=== PATIENT | female | born 1935 | race Caucasian/White ===

== ENCOUNTER 2017-08-26 08:58 | Inpatient (IN) ==
[~2017-08-26 08:58] MED LIST: BUPivacaine Liposome/PF (Exparel) Inj 20ml vial INFIL ONE; Gentamicin Inj 40 MG/ML VIAL ONE; HEPARIN 10,000 UNIT/1 ML ONE; Ketorolac Inj 30 MG, Morphine Inj 5 MG, BUPivacaine Inj 0.25% PF 150 MG SPLASH ONE; LIDOCAINE W/ SODIUM BICARB 0.5 ML SYR SUBD ONE; Sodium Chloride 0.9% 2,000 ML ONE; Sodium Chloride 0.9% 500 ML ONE; Sodium Chloride 0.9% vial 40 ML ONE; ceFAZolin Inj 2gm (Premix) 2 GM/50 ML BAG IV ONE
[2017-08-26 09:24] LABS: BILIRUBIN,URINE NEGATIVE (NEG); CLARITY,URINE CLOUDY (CLEAR); COLOR,URINE YELLOW (Y); GLUCOSE, URINE (UA) NEGATIVE (NEG); OCCULT BLOOD,URINE SMALL (NEG); PH,URINE 5.5 (5.0-8.5); PROTEIN,URINE 100 mg/dl (NEG)
[2017-08-26 09:29] LABS: URINE SAMPLE TYPE VOIDED SPECIMEN; WBC,URINE 40-60
[2017-08-26 09:30] LABS: BACTERIA,URINE MANY; RENAL EPITHELIAL CELLS,URINE RARE; SQUAMOUS EPITHELIAL CELL,UR MANY
[2017-08-26] MEDS ORDERED: LIDOCAINE W/ SODIUM BICARB 0.5 ML SYR ONE (09:41)
[2017-08-26] MEDS ORDERED: Lactated Ringers 1,000 ML PRIMARY IV ONE (09:41)
[2017-08-26] MEDS ORDERED: ceFAZolin Inj 2gm (Premix) 2 GM/50 ML BAG IV ONE (09:41)
[2017-08-26 10:22] LABS: BILIRUBIN,URINE NEGATIVE (NEG); CLARITY,URINE CLEAR (CLEAR); COLOR,URINE YELLOW (Y); GLUCOSE, URINE (UA) NEGATIVE (NEG); OCCULT BLOOD,URINE NEGATIVE (NEG); PROTEIN,URINE 30 mg/dl (NEG)
[2017-08-26 10:33] LABS: RBC,URINE 0 /hpf; SQUAMOUS EPITHELIAL CELL,UR RARE; URINE SAMPLE TYPE CATH SPECIMEN
[2017-08-26] MEDS ORDERED: MIDAZOLAM 5 MG/1 ML ONE (11:57)
[2017-08-26] MEDS ORDERED: ROCURONIUM 10 MG/1 ML - 5 ML VIAL IVP ONE (11:57)
[2017-08-26] MEDS ORDERED: KETAMINE 100 MG/1 ML - 5 ML ONE (11:57)
[2017-08-26] MEDS ORDERED: fentaNYL Inj 250 MCG/5 ML VIAL ONE (11:57)
[2017-08-26] MEDS ORDERED: LIDOCAINE MPF 2% - 5 ML (20 MG/1 ML) ONE ×2 (11:59→14:01)
[2017-08-26] MEDS ORDERED: D5-LR 1,000 ML PRIMARY IV ONE (12:07)
[2017-08-26] MEDS ORDERED: Hetastarch 6% + NS 500 ML IV ONE (13:43)
[2017-08-26] MEDS ORDERED: TRANEXAMIC ACID 1,000 MG / 10 ML VIAL ONE ×2 (14:48→14:49)
[2017-08-26] MEDS ORDERED: Sodium Chloride 0.9% 100 ML IV ONE (14:52)
[2017-08-26] MEDS ORDERED: Sodium Chloride 0.9% 500 ML ONE (15:12)
[2017-08-26] MEDS ORDERED: Ondansetron ODT Tab 8 MG TAB PO PRN ×2 (15:52→17:01)
[2017-08-26] MEDS ORDERED: NORMAL SALINE 10 ML SYRINGE FLUSH IVP PRN ×2 (15:52→17:01)
[2017-08-26] MEDS ORDERED: fentaNYL Inj 100 MCG/2 ML VIAL IVP PRN (15:52)
[2017-08-26] MEDS ORDERED: ATROPINE SULFATE 0.4 MG/1 ML VIAL IVP PRN (15:52)
[2017-08-26] MEDS ORDERED: ONDANSETRON 4 MG/2 ML VIAL IVP PRN ×2 (15:52→17:01)
[2017-08-26] MEDS ORDERED: Lactated Ringers 1,000 ML PRIMARY IV SCH (16:00)
--- NOTE | 2017-08-26 16:01 | CRNA.PROGR ---
Anesthesia Time - - Start date: 08/26/17 End date: 08/26/17 - Procedure/Recovery Time Anesthesia : Time In: 12:11 Anesthesia : Time Out: 15:44 Anesthesia : Total Time: 213 - Total Anesthesia Time Total Anesthesia Time (minutes): 213 - Other Weight: 90.718 kg Height: 5 ft 6 in Body Mass Index (BMI): 32.3 Physical Status: P3 (ASCVD, CVA history, HTN, AGE) Anesthesia Type: General Anesthesia : ET
--- NOTE | 2017-08-26 16:02 | CRNA.PROGR ---
Anesthesia Recovery Phase I - Post Anesthesia Evaluation Patient's Condition on Arrival in Phase I: Stable Patient's Condition on Arrival in Phase II: Stable Pain Level: 0
--- NOTE | 2017-08-26 16:02 | CRNA.PROGR ---
Post Anesthesia Phase II - Post Anesthesia Phase II Patient Stable and Discharged To: Med/Surg Care Assumed By Surgeon: Jarret May MD Total Jorgito Score at Discharge: 9 Post Anesthesia Discharge Criteria Met: Yes
--- NOTE | 2017-08-26 16:08 | ORTHO.OP ---
- - -: See Dictated Operative Report Procedure Codes - Hip Procedures Primary Hip Procedure: 53456 : ALEJANDRA (Itzel Walker assisted)
[2017-08-26] MEDS ORDERED: HYDROmorphone 2 MG/1 ML IVP PRN (17:01)
[2017-08-26] MEDS ORDERED: Prochlorperazine Tab 10 MG TAB PO PRN (17:01)
[2017-08-26] MEDS ORDERED: CARVEDILOL 6.25 MG TABLET PO SCH ×2 (17:01→21:00)
[2017-08-26] MEDS ORDERED: MAG HYDROX/AL HYDROX/SIMETH 30 ML SUSP PO PRN (17:01)
[2017-08-26] MEDS ORDERED: Insulin Glargine SoloStar Inj 100 UNIT/ML INSULN.PEN SUBCUT SCH ×2 (17:01→21:00)
[2017-08-26] MEDS ORDERED: diphenhydrAMINE 25 MG CAPSULE PO PRN (17:01)
[2017-08-26] MEDS ORDERED: BISACODYL 5 MG TABLET PO PRN (17:01)
[2017-08-26] MEDS ORDERED: BISACODYL 10 MG SUPPOSITORY RECTAL PRN (17:01)
[2017-08-26] MEDS ORDERED: CALCIUM CARBONATE 500 MG (TUMS) CHEWABLE TABLET PO PRN (17:01)
[2017-08-26] MEDS ORDERED: DOCUSATE 100 MG CAPSULE PO SCH (17:01)
--- NOTE | 2017-08-26 17:40 | CONSULT ---
Consult Note - Consult Consult Date: 08/26/17 Reason for Consult: PostOp Consulation : Ortho Requesting Physician: Dr. May Primary Care Provider: FREDY HARRY - History of Present Illness History of Present Illness: This is a 81 years old female with medical history significant for history of stroke back in March 2017, hypertension, diabetes, sleep apnea, osteoarthritis who came into the hospital to have right hip replacement and was done by Dr. May today. The hospitalist service were consulted for management of medical issues. Currently she is denying symptoms right now. There is no significant pain, no chest pain, no shortness of breath and no nausea. Past Medical History Medical History: 1. Diabetes on insulin and Glucophage. 2. Hypertension. 3. Stroke in March last year. 4. Osteoarthritis. 5. History of for obstructive sleep apnea on oxygen at night. 6. GERD. 7. History of neuropathy. 8. History of chronic back pain Surgical History: 1. History of cholecystectomy. 2. History of knee replacements before Pertinent Family History: Son had coronary artery disease Past Social History: She used to smoke and drink but not anymore. Lives in [place]. Had 4 children one of them from coronary artery disease. She doesn't drive. Tobacco Use: Former Smoker In the Past 12 Months, Have Used or Abuse Any of the Following Substance: None Alcohol Use: None Review of Systems - Review of Systems All Systems: Reviewed & No Additional Complaints Except as Stated Medication / Allergies Home Medications: Home Medications 3 Medication Instructions Recorded Confirmed Type hydrocodone 5 mg-acetaminophen 325 1 tab PO Q8H PRN tab 03/26/17 08/20/17 History mg tablet metformin 1,000 mg tablet 1,000 mg PO BID 03/26/17 08/20/17 History calcium carbonate-vitamin D3 600 1 cap PO QDAY cap 04/23/17 08/20/17 History mg (1,500 mg)-500 unit capsule fluticasone 50 mcg/actuation nasal 1 spray INASL QDAY PRN 04/23/17 08/20/17 History spray,suspension atorvastatin 40 mg tablet 40 mg PO QHS 04/24/17 08/20/17 History fesoterodine ER 8 mg 8 mg PO QDAY 04/24/17 08/20/17 History tablet,extended release 24 hr gabapentin 600 mg tablet 600 mg PO QHS tab 04/24/17 08/20/17 History venlafaxine ER 75 mg 75 mg PO BID cap 04/24/17 08/20/17 History capsule,extended release 24 hr carvedilol 6.25 mg tablet 6.25 mg PO BID tab 07/16/17 08/20/17 History docusate sodium 100 mg capsule 100 mg PO QDAY 07/16/17 08/20/17 History famotidine 20 mg tablet 20 mg PO BID 07/16/17 08/20/17 History insulin glargine 100 unit/mL (3 50 unit SUBCUT ONCE 07/16/17 08/20/17 History mL) subcutaneous pen linaclotide 145 mcg capsule 145 mcg PO QDAY 07/16/17 08/20/17 History valsartan 320 mg tablet 320 mg PO QDAY 07/16/17 08/20/17 History apixaban 5 mg tablet 5 mg PO BID tab 08/20/17 08/20/17 History Allergies/Adverse Reactions: Allergies 3 Allergy/AdvReac Type Severity Reaction Status Date / Time bee stings Allergy Severe HIVES Uncoded 08/26/17 17:03 morphine AdvReac NAUSEA Uncoded 08/26/17 17:03 Exam - Vitals Vital Signs: Vital Signs Temperature 97.2 F Temperature Source Temporal Artery Scan Pulse Rate [Pulse Oximeter] 76 Pulse Rate 78 Respiratory Rate 17 Blood Pressure [Left Arm] 129/81 Pulse Ox 99 Oxygen Flow Rate 4 Oxygen Delivery Method Nasal Cannula Height 5 ft 6 in Weight 200 lb - General General Appearance: No Acute Distress, Cooperative, Obese - Head Head Exam: Normal Inspection, Atraumatic - Eye Eye Exam: POSITIVE: Normal Appearance - ENT ENT Exam: POSITIVE: Normal Exam - Neck Neck Exam: Normal Inspection - Respiratory Respiratory Exam: POSITIVE: Clear to Auscultation - Bilaterally - Cardiovascular Cardiovascular Exam: POSITIVE: RRR - GI/Abdominal GI/Abdominal Exam: POSITIVE: Normal Bowel Sounds, Non Tender, Non Distended, Soft, No Organomegaly - Rectal Rectal Exam: POSITIVE: Deferred - External Exam: POSITIVE: Deferred - Extremities Additional Extremities Exam Details: Dressing applied to the right hip. Drain is in place - Neurological Neurological Exam: POSITIVE: Alert, Oriented x 3, CN II-XII Intact, Speech Intact / Clear - Psychiatric Psychiatric Exam: POSITIVE: Normal Affect - Integumentary Integumentary Exam: POSITIVE: Normal Color Assessment and Plan - Patient Problems (1) Status post right hip replacement Current Visit: Yes Status: Acute Comment: Pain medication was written for her. For DVT prophylaxis she is normally on eliquis and will be started on it tomorrow. Code(s): Z96.641 - Presence of right artificial hip joint (2) Hypertension Current Visit: No Status: Chronic Comment: We'll verify the dosage of her medications and probably will see what' s her blood pressure number and decide about when to restart her medications. We'll hold off on the valsartan until we see her blood pressure tomorrow. Code(s): I10 - Essential (primary) hypertension (3) Diabetes type 2, controlled Current Visit: No Status: Chronic Comment: She is on Lantus and metformin. Will put her on metformin will verify the dosage of her Lantus and then decide pending on her blood sugar, her intake about when to restart her Lantus. Code(s): E11.9 - Type 2 diabetes mellitus without complications (4) GERD (gastroesophageal reflux disease) Current Visit: No Status: Chronic Comment: Same meds Code(s): K21.9 - Gastro-esophageal reflux disease without esophagitis (5) Hyperlipidemia Current Visit: No Status: Chronic Comment: Same med Code(s): E78.5 - Hyperlipidemia, unspecified (6) Peripheral neuropathy Current Visit: No Status: Chronic Comment: Continue Neurontin Code(s): G62.9 - Polyneuropathy, unspecified
[2017-08-26] MEDS: HYDROcodone-APAP 7.5 MG-325 MG TABLET PO PRN (18:09)
[2017-08-26] MEDS: Lactated Ringers 1,000 ML PRIMARY IV SCH (18:10)
[2017-08-26] MEDS: FESOTERODINE FUMARATE 8 MG PO SCH (18:46)
--- NOTE | 2017-08-26 19:59 | DI ---
AP PELVIS AND RIGHT HIP, 08/26/2017 11:12 AM: Clinical History: Status post right total hip replacement. Osteoarthritis. Previous Exam: 08/25/2017. An AP pelvis with AP and lateral views of the replaced hip are submitted. The patient is status post right total hip replacement. The prosthetic joint articulates normally. A drain tube is in place. The re is a cerclage wire encircling the proximal femur. Reading: Status post right total hip replacement. The prosthetic joint articulates normally. A cerclage wire i s present.
[2017-08-26] MEDS: VENLAFAXINE XR 75 MG CAP PO SCH (20:55)
[2017-08-26] MEDS: GABAPENTIN 300 MG CAPSULE PO SCH (20:56)
[2017-08-26] MEDS: ATORVASTATIN 40 MG TABLET PO SCH (20:58)
[2017-08-26] MEDS: FAMOTIDINE 20 MG TABLET PO SCH (20:58)
[2017-08-26] MEDS: ceFAZolin Inj 2gm (Premix) 2 GM/50 ML BAG IV SCH (21:01)
[2017-08-26] MEDS: metFORMIN 500 MG TABLET PO SCH (21:24)
[2017-08-26] MEDS: DOCUSATE 100 MG CAPSULE PO SCH (22:05)
[2017-08-27] MEDS: HYDROcodone-APAP 7.5 MG-325 MG TABLET PO PRN ×6 (00:11→23:23)
[2017-08-27] MEDS: Lactated Ringers 1,000 ML PRIMARY IV SCH ×3 (03:24→04:11)
[2017-08-27] MEDS: ceFAZolin Inj 2gm (Premix) 2 GM/50 ML BAG IV SCH (04:11)
[2017-08-27 05:06] LABS: Hematocrit [HCT] 28.1 % (37.0-47.0); Hemoglobin [HGB] 8.8 g/dL (12.0-16.0); MEAN CORPUSCULAR HEMOGLOBIN 28.4 PG (27-31); MEAN CORPUSCULAR HGB CONC 31.3 g/dL (33-37); MEAN CORPUSCULAR VOLUME 90.6 FL (81-99); MEAN PLATELET VOLUME 10.5 FL (7.4-12.2); RED BLOOD COUNT 3.1 10^6/uL (4.20-5.40)
[2017-08-27 05:21] LABS: BLOOD UREA NITROGEN 14 mg/dL (7-22); BUN/CREATININE RATIO 23.33 (6-20)
[2017-08-27] MEDS ORDERED: LIDOCAINE HCL 2 % 10 ML JELLY URO-JECT TOPICAL PRN (07:06)
--- NOTE | 2017-08-27 08:03 | ORTHO.PROG ---
Last Taken Vital Signs: Vital Signs - Last Taken Temperature 97.1 F 08/27/17 04:13 Pulse Rate 69 08/27/17 04:13 Respiratory Rate 14 08/27/17 04:13 Blood Pressure 112/65 08/27/17 04:13 Pulse Ox 96 08/27/17 05:27 Subjective: Patient's pain controlled well, feels good after right total hip replacement Objective: Dressings are intact the deep drain has approximately 40 mL superficial drain looks like it's functioning correctly motor and sensory exam is nonfocal. No calf, popliteal adductor hiatus or thigh pain. Patient with portable plasma flow devices in place Intake and Output - 8hrs 08/26/17 08/26/17 08/27/17 08/27/17 13:59 21:59 05:59 13:59 Intake: IV 3050 / 3050 1212 / 1212 OrthoPat 250 / 250 Output: Output, Drainage Amount 0 / 0 40 / 40 Right Hip 0 / 0 40 / 40 Output, Urinary Catheter Amount 200 / 200 Output, Urine Amount 100 / 100 150 / 150 Output, Post Indwelling 20 / 20 Catheter Insertion Output, Estimated Blood Loss 700 / 700 Amount Other: Percent Meal Consumed Dinner 100% Drains Hemovac Negative Pressure Drain R hip Hemovac Negative Pressure Drain Weight 90.718 kg 90.718 kg Weight Measurement Method Stated by Patient Laboratory Results 08/26/17 08/26/17 08/27/17 Range/Units 09:20 10:13 04:30 WBC (4.8-10.8) 10^3/uL RBC (4.20-5.40) 10^6/uL Hgb (12.0-16.0) g/dL Hct (37.0-47.0) % MCV (81-99) FL MCH (27-31) PG MCHC (33-37) g/dL RDW Std Deviation (39-50) fL RDW Coeff of Bethanie (11.5-14.5) % Plt Count (140-350) 10*3/uL MPV (7.4-12.2) FL Sodium 134 L (135-145) meq/L Potassium 4.1 (3.8-5.2) meq/L Chloride 101 (98-112) meq/L Carbon Dioxide 27 (23-33) meq/L Anion Gap 6 (5-20) BUN 14 (7-22) mg/dL Creatinine 0.6 (0.50-1.20) mg/dL BUN/Creatinine Ratio 23.33 H (6-20) Glucose 145 H (78-110) mg/dL Calculated Osmolality 281.0 (267-292) mOsm/kg Calcium 7.8 L (8.7-10.7) mg/dL Ur Collection Type Voided specimen Cath specimen Urine Color Yellow Yellow (Y) Urine Clarity Cloudy A Clear (CLEAR) Urine pH 5.5 6.0 (5.0-8.5) Ur Specific [place] 1.015 1.025 (1.005-1.030) Urine Protein 100 A 30 A (NEG) mg/dl Urine Glucose (UA) Negative Negative (NEG) mg/dL Urine Ketones Negative Trace A (NEG) Urine Occult Blood Small H Negative (NEG) Urine Nitrate Negative Negative (NEG) Urine Bilirubin Negative Negative (NEG) Urine Urobilinogen 1.0 1.0 (0.2) EU/dL Ur Leukocyte Esterase Large Trace (NEG) Urine RBC 1-3 0 (NONE) /hpf Urine WBC 40-60 H 1-3 (NONE) Ur Squamous Epith Cells Many Rare (NONE) Ur Renal Epithelial Cell Rare None (NONE) Urine Crystals None None Urine Bacteria Many H None (NONE) Urine Casts None None (NONE) Urine Mucus None Many (NONE) Urine Trichomonas None None (NONE) Urine Yeast None None (NONE) 08/27/17 Range/Units 04:30 WBC 9.33 (4.8-10.8) 10^3/uL RBC 3.10 L (4.20-5.40) 10^6/uL Hgb 8.8 L (12.0-16.0) g/dL Hct 28.1 L (37.0-47.0) % MCV 90.6 (81-99) FL MCH 28.4 (27-31) PG MCHC 31.3 L (33-37) g/dL RDW Std Deviation 41.2 (39-50) fL RDW Coeff of Bethanie 12.9 (11.5-14.5) % Plt Count 185 (140-350) 10*3/uL MPV 10.5 (7.4-12.2) FL Sodium (135-145) meq/L Potassium (3.8-5.2) meq/L Chloride (98-112) meq/L Carbon Dioxide (23-33) meq/L Anion Gap (5-20) BUN (7-22) mg/dL Creatinine (0.50-1.20) mg/dL BUN/Creatinine Ratio (6-20) Glucose (78-110) mg/dL Calculated Osmolality (267-292) mOsm/kg Calcium (8.7-10.7) mg/dL Ur Collection Type Urine Color (Y) Urine Clarity (CLEAR) Urine pH (5.0-8.5) Ur Specific [place] (1.005-1.030) Urine Protein (NEG) mg/dl Urine Glucose (UA) (NEG) mg/dL Urine Ketones (NEG) Urine Occult Blood (NEG) Urine Nitrate (NEG) Urine Bilirubin (NEG) Urine Urobilinogen (0.2) EU/dL Ur Leukocyte Esterase (NEG) Urine RBC (NONE) /hpf Urine WBC (NONE) Ur Squamous Epith Cells (NONE) Ur Renal Epithelial Cell (NONE) Urine Crystals Urine Bacteria (NONE) Urine Casts (NONE) Urine Mucus (NONE) Urine Trichomonas (NONE) Urine Yeast (NONE) Vital Signs (24 hrs) Temp Pulse Pulse Resp BP BP BP 08/27/17 05:27 08/27/17 04:13 97.1 F 69 14 112/65 08/27/17 00:39 98.4 F 83 20 112/59 08/26/17 21:19 98.3 F 94 20 115/61 08/26/17 20:45 98.4 F 89 20 109/70 08/26/17 20:15 98.5 F 86 20 104/59 08/26/17 19:45 110/68 08/26/17 19:30 116/68 08/26/17 19:29 08/26/17 19:15 106/63 08/26/17 19:00 18 116/73 08/26/17 18:00 81 16 114/66 08/26/17 17:45 82 18 129/69 08/26/17 17:30 81 18 120/74 08/26/17 17:15 78 16 114/101 08/26/17 17:02 97.2 F 76 18 129/81 08/26/17 16:37 97.9 F 73 24 134/68 08/26/17 16:27 71 15 128/66 02/27/18 16:17 98.6 F 76 12 120/63 08/26/17 16:11 78 08/26/17 16:07 80 11 L 115/67 08/26/17 15:57 80 12 98/62 08/26/17 15:52 80 17 106/57 08/26/17 15:47 99.6 F 80 14 105/63 Pulse Ox 08/27/17 05:27 96 08/27/17 04:13 97 08/27/17 00:39 96 08/26/17 21:19 96 08/26/17 20:45 95 08/26/17 20:15 97 08/26/17 19:45 08/26/17 19:30 08/26/17 19:29 96 08/26/17 19:15 08/26/17 19:00 08/26/17 18:00 100 08/26/17 17:45 100 08/26/17 17:30 99 08/26/17 17:15 98 08/26/17 17:02 99 08/26/17 16:37 99 08/26/17 16:27 99 08/26/17 16:17 100 08/26/17 16:11 08/26/17 16:07 98 08/26/17 15:57 98 08/26/17 15:52 98 08/26/17 15:47 98 Assessment: Right anterior total hip replacement doing well Plan: Patient will be started back on her eliquis and continue with the portable pneumatic sequential devices. Physical therapy and occupational therapy and we will do partial weightbearing may be somewhere between 30 and 50 pounds just to keep a little stress off that hip I probably will do this for a total of 6 weeks since we did band the upper femur was no calcar crack which went distally but along the posterior surface this bone was not as strong as I would like and I don't want to have any type of propagation. Pain control, patient anemic and will follow CBC the next several days.
[2017-08-27] MEDS ORDERED: Valsartan Tab 160 MG TAB PO SCH (09:00)
[2017-08-27] MEDS ORDERED: CARVEDILOL 6.25 MG TABLET PO SCH (09:00)
[2017-08-27] MEDS: FAMOTIDINE 20 MG TABLET PO SCH ×2 (09:05→21:30)
[2017-08-27] MEDS: GABAPENTIN 300 MG CAPSULE PO SCH ×2 (09:05→21:31)
[2017-08-27] MEDS: DOCUSATE 100 MG CAPSULE PO SCH ×2 (09:06→21:31)
[2017-08-27] MEDS: VENLAFAXINE XR 75 MG CAP PO SCH ×2 (09:06→21:31)
[2017-08-27] MEDS: Apixaban 5 MG TABLET PO SCH ×2 (09:06→21:31)
[2017-08-27] MEDS: metFORMIN 500 MG TABLET PO SCH ×2 (09:06→21:31)
[2017-08-27] MEDS: Calcium/Vit D 600mg/400u Tab 1 TAB TABLET PO SCH (09:06)
--- NOTE | 2017-08-27 09:39 | PDOC(PROG) ---
Date and Time of Service: 08/27/2017 9:39 AM Interval History: Subjective Patient had earlier some pain in her right hip but seems to be controlled now. She said she felt dizzy earlier but not anymore. Denying shortness of breath, chest pain. She did eat. Objective : Data - Labs CBC and BMP: 08/27/17 04:30 08/27/17 04:30 Objective : Exam - General General Appearance: No Acute Distress, Cooperative, Obese - Head Head Exam: Normal Inspection, Atraumatic - Eye Eye Exam: Normal Appearance - ENT ENT Exam: Normal Exam - Neck Neck Exam: Normal Inspection - Respiratory Respiratory Exam: Clear to Auscultation - Bilaterally - Cardiovascular Cardiovascular Exam: RRR - GI/Abdominal GI/Abdominal Exam: Normal Bowel Sounds, Non Tender, Non Distended, Soft, No Organomegaly - Rectal Rectal Exam: Deferred - External Exam: Deferred Exam: Deferred - Extremities Additional Extremities Exam Details: Dressing applied right hip. - Back Back Exam: Normal Inspection - Neurological Neurological Exam: Alert, Oriented x 3, CN II-XII Intact, Speech Intact / Clear - Psychiatric Psychiatric Exam: Normal Affect Assessment and Plan - Patient Problems (1) Status post right hip replacement Current Visit: Yes Status: Acute Comment: Continue PT and OT. For DVT prophylaxis she is on eliquis. Code(s): Z96.641 - Presence of right artificial hip joint (2) Hypertension Current Visit: No Status: Chronic Comment: Blood pressure is borderline I think I'll cut back on the Coreg. Continue holding the valsartan. Code(s): I10 - Essential (primary) hypertension (3) Diabetes type 2, controlled Current Visit: No Status: Chronic Comment: Continue metformin, I think will increase the dosage of the Lantus to 15 units tonight. Normally she is on 50. We'll see what her numbers today and decide whether we need to increase it further. Code(s): E11.9 - Type 2 diabetes mellitus without complications (4) GERD (gastroesophageal reflux disease) Current Visit: No Status: Chronic Comment: Continue Pepcid Code(s): K21.9 - Gastro-esophageal reflux disease without esophagitis (5) Hyperlipidemia Current Visit: No Status: Chronic Comment: She is on Lipitor Code(s): E78.5 - Hyperlipidemia, unspecified (6) Peripheral neuropathy Current Visit: No Status: Chronic Comment: Continue gabapentin Code(s): G62.9 - Polyneuropathy, unspecified (7) Postoperative anemia due to acute blood loss Current Visit: Yes Status: Acute Comment: Her hemoglobin is 8.8 today, we'll see what the numbers tomorrow and then will decide if she needs blood transfusion. Will put her on some multivitamin and iron pills Code(s): D62 - Acute posthemorrhagic anemia
[2017-08-27] MEDS: LINACLOTIDE 145 MCG PO SCH (09:51)
--- NOTE | 2017-08-27 16:21 | CRNA.PROGR ---
Anesthesia Note - Progress Notes Anesthesia Progress Note: Intake and Output (24hr x 4 totals) 08/25/17 08/26/17 08/27/17 08/28/17 05:59 05:59 05:59 05:59 Intake Total 4512 / 4512 740 / 740 Output Total 1210 / 1210 Balance 3302 / 3302 740 / 740 Vital Signs (Last 8 hours) Temp Pulse Resp BP Pulse Ox 08/27/17 11:29 97.2 F 72 16 93/47 96 Vital Signs - Last Taken Temperature 97.2 F 08/27/17 11:29 Pulse Rate 72 08/27/17 11:29 Respiratory Rate 16 08/27/17 11:29 Blood Pressure 93/47 08/27/17 11:29 Pulse Ox 96 08/27/17 11:29 Laboratory Results 08/27/17 08/27/17 Range/Units 04:30 04:30 WBC 9.33 (4.8-10.8) 10^3/uL RBC 3.10 L (4.20-5.40) 10^6/uL Hgb 8.8 L (12.0-16.0) g/dL Hct 28.1 L (37.0-47.0) % MCV 90.6 (81-99) FL MCH 28.4 (27-31) PG MCHC 31.3 L (33-37) g/dL RDW Std Deviation 41.2 (39-50) fL RDW Coeff of Bethanie 12.9 (11.5-14.5) % Plt Count 185 (140-350) 10*3/uL MPV 10.5 (7.4-12.2) FL Sodium 134 L (135-145) meq/L Potassium 4.1 (3.8-5.2) meq/L Chloride 101 (98-112) meq/L Carbon Dioxide 27 (23-33) meq/L Anion Gap 6 (5-20) BUN 14 (7-22) mg/dL Creatinine 0.6 (0.50-1.20) mg/dL BUN/Creatinine Ratio 23.33 H (6-20) Glucose 145 H (78-110) mg/dL Calculated Osmolality 281.0 (267-292) mOsm/kg Calcium 7.8 L (8.7-10.7) mg/dL Cheerful. Pleased with care. Has been up to chair. Thierry is still in. States she has been comfortable. Not going home today, lives alone and wants to be certain that she's okay. Vital Signs - Last Taken Temperature 97 F 08/28/17 07:21 Pulse Rate 74 08/28/17 07:21 Respiratory Rate 16 08/28/17 07:21 Blood Pressure 105/67 08/28/17 07:21 Pulse Ox 94 08/28/17 07:21
--- NOTE | 2017-08-27 16:40 | PT.PROG ---
Progress Note Progress Note: S. Patient states that she is feeling a little sore this afternoon however is willing to go for a walk. O. Patient transferred from sitting to standing then ambulated 30 feet to the hernandez and back to bed, she transferred to supine and was left in bed with alarm and call light. A. Patient tolerated ambulation fair, her shoulders were giving her a lot of pain and required a seated rest break due to pain in her neck and shoulders, she reported that her hip feels good. She would continue to benefit from skilled therapy to increase strength and mobility. P. Continue POC.
[2017-08-27] MEDS: FESOTERODINE FUMARATE 8 MG PO SCH (17:08)
[2017-08-27] MEDS ORDERED: Insulin Glargine SoloStar Inj 100 UNIT/ML INSULN.PEN SUBCUT SCH (21:00)
[2017-08-27] MEDS: ATORVASTATIN 40 MG TABLET PO SCH (21:31)
[2017-08-27] MEDS: CARVEDILOL 3.125 MG TABLET PO SCH (21:31)
[2017-08-28] MEDS: HYDROcodone-APAP 7.5 MG-325 MG TABLET PO PRN ×4 (03:54→23:07)
[2017-08-28 05:36] LABS: Hematocrit [HCT] 24.6 % (37.0-47.0); Hemoglobin [HGB] 7.9 g/dL (12.0-16.0); MEAN CORPUSCULAR HGB CONC 32.1 g/dL (33-37); MEAN CORPUSCULAR VOLUME 90.4 FL (81-99); RED BLOOD COUNT 2.72 10^6/uL (4.20-5.40)
[2017-08-28 05:47] LABS: BLOOD UREA NITROGEN 14 mg/dL (7-22); BUN/CREATININE RATIO 23.33 (6-20)
[2017-08-28] MEDS ORDERED: Sodium Chloride 0.9% 500 ML PRIMARY IV ONE (08:02)
--- NOTE | 2017-08-28 08:08 | PDOC(PROG) ---
Date and Time of Service: 08/28/2017 8:04 AM Interval History: Subjective Patient pain seemed to be controlled. She said she had some mild dizziness earlier. No other symptoms. Objective : Data - Labs CBC and BMP: 08/28/17 03:52 08/28/17 03:52 Objective : Exam - General General Appearance: No Acute Distress, Cooperative, Thin - Head Head Exam: Normal Inspection, Atraumatic - Eye Eye Exam: Normal Appearance - ENT ENT Exam: Normal Exam - Neck Neck Exam: Normal Inspection - Respiratory Respiratory Exam: Clear to Auscultation - Bilaterally - Cardiovascular Cardiovascular Exam: RRR - GI/Abdominal GI/Abdominal Exam: Normal Bowel Sounds, Non Tender, Non Distended, Soft, No Organomegaly - Rectal Rectal Exam: Deferred - External Exam: Deferred - Extremities Additional Extremities Exam Details: Dressing applied to the right hip - Back Back Exam: Normal Inspection - Neurological Neurological Exam: Alert, Oriented x 3, CN II-XII Intact, No Facial Droop, Speech Intact / Clear - Psychiatric Psychiatric Exam: Normal Affect - Integumentary Integumentary Exam: Pallor Assessment and Plan - Patient Problems (1) Status post right hip replacement Current Visit: Yes Status: Acute Comment: Continue PT and OT. For DVT prophylaxis she is on eliquis Code(s): Z96.641 - Presence of right artificial hip joint (2) Hypertension Current Visit: No Status: Chronic Comment: We'll continue Coreg but at a lower dosage than she takes. Continue holding the valsartan her blood pressure still seems to be borderline. Code(s): I10 - Essential (primary) hypertension (3) Diabetes type 2, controlled Current Visit: No Status: Chronic Comment: We'll increase Lantus to 17 units tonight, she is normally on 50 units at night. She said she is watching what she eats and maybe that the reason for her needing less insulin. Code(s): E11.9 - Type 2 diabetes mellitus without complications (4) GERD (gastroesophageal reflux disease) Current Visit: No Status: Chronic Comment: Continue Pepcid Code(s): K21.9 - Gastro-esophageal reflux disease without esophagitis (5) Hyperlipidemia Current Visit: No Status: Chronic Comment: contineu lipitor Code(s): E78.5 - Hyperlipidemia, unspecified (6) Peripheral neuropathy Current Visit: No Status: Chronic Comment: Continue gabapentin Code(s): G62.9 - Polyneuropathy, unspecified (7) Postoperative anemia due to acute blood loss Current Visit: Yes Status: Acute Comment: With the dizziness, and her HB of 7.9 today I think will give her 2 units of blood. Code(s): D62 - Acute posthemorrhagic anemia
[2017-08-28] MEDS: metFORMIN 500 MG TABLET PO SCH ×2 (08:19→20:13)
[2017-08-28] MEDS: GABAPENTIN 300 MG CAPSULE PO SCH ×2 (08:19→20:14)
[2017-08-28] MEDS: Calcium/Vit D 600mg/400u Tab 1 TAB TABLET PO SCH (08:19)
[2017-08-28] MEDS: VENLAFAXINE XR 75 MG CAP PO SCH ×2 (08:19→20:12)
[2017-08-28] MEDS: FERROUS GLUCONATE 324 MG TABLET PO SCH (08:20)
[2017-08-28] MEDS: Multivitamin Tab 1 TAB PO SCH (08:20)
[2017-08-28] MEDS: CARVEDILOL 3.125 MG TABLET PO SCH ×2 (08:20→20:25)
[2017-08-28] MEDS: FAMOTIDINE 20 MG TABLET PO SCH ×2 (08:20→20:14)
[2017-08-28] MEDS: Apixaban 5 MG TABLET PO SCH ×2 (08:20→20:14)
[2017-08-28] MEDS: DOCUSATE 100 MG CAPSULE PO SCH ×2 (08:20→20:14)
--- NOTE | 2017-08-28 10:11 | PTI REPORT ---
Thank you for the referral of Zelda Reyez. She was seen on 08/27/17 for an inpatient evaluation status post right total hip replacement. SUBJECTIVE: The patient is a 81-year-old female. The patient reports that she lives by herself in [place]. She states her son and [id number]-ose live nearby but they work during the day. The patient reports she has discussed swingbed status with the physician. She reports that she was previously modified independent with ADLs and functional mobility using a rollator walker or a four wheeled walker. The patient also reports a history of multiple lower extremity surgeries, low back pain, and prior physical therapy in [place]. PAST MEDICAL HISTORY: Past medical history can be found in the patient's medical record. OBJECTIVE FINDINGS: General observations: The patient was supine in bed upon the therapist's arrival with an IV, sequential compression devices on bilateral lower extremities, and two liters of supplemental oxygen. Pain: The patient reports a pain level of 6/10 on the verbal analog scale (0=no pain, 10=worst pain) in the right hip at rest. Nursing administered pain medications during the evaluation. Bed mobility: The patient performed bed mobility independently but required extra time to come from supine to sit. Balance: The patient was able to maintain sitting balance at edge of bed independently. Transfers: The patient transferred from sit to stand with one person minimal assist. Verbal and tactile cues as well as demonstration were needed to maintain partial weight-bearing status precautions. Ambulation: The patient ambulated with a standard walker, approximately 5 feet to the bedside chair with contact guard assist, but required cues to maintain weight-bearing precautions. Endurance: The patient complained of shortness of breath during ambulation and pain increased to 8/10. ASSESSMENT: The patient is status post right total hip replacement on 08/26/2017. The patient is partial weight-bearing; approximately 30-50 pounds. Problem List: Decreased lower extremity strength Decreased endurance Decreased independence with functional mobility including transfers and ambulation Pain Partial weight-bearing status Short-Term Goals: To be met by discharge from inpatient: Patient will be able to perform transfers modified independently using a standard walker. Patient will be able to ambulate 25 feet with standard walker, while maintaining weight-bearing precautions. Patient will recall and demonstrate partial weight-bearing precautions during functional mobility. Patient will demonstrate increased lower extremity strength by being able to perform bed mobility and transfers independently. Long-Term Goals: To be met following discharge from inpatient: Patient will be seen by outpatient physical therapy. TREATMENT PLAN: Patient will be seen B.I.D during the week and one time per day over the weekend as an inpatient for strengthening and range of motion exercises, bed mobility, transfers, and gait training while maintaining partial weight-bearing status. The patient will receive safety education in order to increase functional independence and decrease fall risk. INITIAL TREATMENT: Treatment today consisted of the initial evaluation followed by education on weight-bearing status, instruction on gait, and functional activity training including bed mobility, transfers, and ambulation with a standard walker. The patient was seated in the bedside chair with call button within reach and an ice pack applied to the right hip. Dictated by: CELIA Delcid Supervised by: FREDRICK Adame
[2017-08-28] MEDS: LINACLOTIDE 145 MCG PO SCH (10:46)
--- NOTE | 2017-08-28 15:39 | PT.PROG ---
Progress Note Progress Note: Nursing requested that physical therapy be held today due to patient needing blood transfusion.
[2017-08-28] MEDS: FESOTERODINE FUMARATE 8 MG PO SCH (16:10)
--- NOTE | 2017-08-28 17:51 | ORTHO.PROG ---
Last Taken Vital Signs: Vital Signs - Last Taken Temperature 98.5 F 08/28/17 16:04 Pulse Rate 71 08/28/17 16:04 Respiratory Rate 16 08/28/17 16:04 Blood Pressure 150/72 08/28/17 16:04 Pulse Ox 98 08/28/17 16:04 Subjective: Patient notes her pain is pretty well controlled but notes that she is very fatigued and felt a little lightheaded with mobilization the other day going from sitting to standing. Objective: Dressing is clean and dry where drain was pulled is no active drainage her PREVENA dressing is in place with no active issues. Motor and sensory exam is nonfocal she has popliteal or Dr. hiatus or thigh pain. Mild amount of swelling in the thigh region no bruising or ecchymosis. Laboratory Results 08/28/17 08/28/17 08/28/17 Range/Units 03:52 03:52 09:25 WBC 8.72 (4.8-10.8) 10^3/uL RBC 2.72 L (4.20-5.40) 10^6/uL Hgb 7.9 L (12.0-16.0) g/dL Hct 24.6 L (37.0-47.0) % MCV 90.4 (81-99) FL MCH 29.0 (27-31) PG MCHC 32.1 L (33-37) g/dL RDW Std Deviation 40.9 (39-50) fL RDW Coeff of Bethanie 12.9 (11.5-14.5) % Plt Count 145 (140-350) 10*3/uL MPV 11.0 (7.4-12.2) FL Sodium 130 L (135-145) meq/L Potassium 4.2 (3.8-5.2) meq/L Chloride 96 L (98-112) meq/L Carbon Dioxide 28 (23-33) meq/L Anion Gap 6 (5-20) BUN 14 (7-22) mg/dL Creatinine 0.6 (0.50-1.20) mg/dL BUN/Creatinine Ratio 23.33 H (6-20) Glucose 141 H (78-110) mg/dL Calculated Osmolality 272.0 (267-292) mOsm/kg Calcium 8.1 L (8.7-10.7) mg/dL Blood Type O NEGATIVE Antibody Screen Positive Antibody Identification Anti-D Crossmatch See Detail Intake and Output - 8hrs 08/27/17 08/28/17 08/28/17 08/28/17 21:59 05:59 13:59 21:59 Intake: Intake Oral Amount 600 / 600 1000 / 1000 400 / 400 700 / 700 Breakfast 400 / 400 Intake, Blood Product Amount 0 / 0 349 / 349 Packed Red Bld Cells Unit 175 / 175 [id number] Packed Red Bld Cells Unit 0 / 0 174 / 174 [id number] Output: Output, Urinary Catheter Amount 1100 / 1100 925 / 925 Output, Urine Amount 200 / 200 675 / 675 Other: Percent Meal Consumed Breakfast 100% Dinner 100% Lunch Refused Number of Incontient Voids 1 Weight 90.991 kg 92.578 kg Weight Measurement Method Standing Scale Built in [facility] Vital Signs (24 hrs) Temp Pulse Pulse Resp BP BP BP 08/28/17 16:04 98.5 F 71 16 150/72 08/28/17 15:50 97.5 F 72 18 150/72 08/28/17 14:54 98.8 F 78 16 140/60 08/28/17 14:52 99.0 F 72 16 140/60 08/28/17 14:36 99.7 F H 75 16 133/61 08/28/17 14:12 99.0 F 70 16 116/85 08/28/17 13:31 98.5 F 72 14 116/61 08/28/17 13:16 99.1 F 73 18 122/82 08/28/17 13:01 99.7 F H 83 18 113/54 08/28/17 12:49 99.8 F H 83 18 109/59 08/28/17 12:37 98.9 F 80 18 122/58 08/28/17 12:26 98.9 F 80 18 122/58 08/28/17 11:11 97 F 84 20 109/66 08/28/17 07:21 97 F 74 16 105/67 08/28/17 07:00 16 08/28/17 06:47 08/28/17 04:33 97.1 F 73 16 110/88 08/28/17 03:39 08/28/17 00:32 96.9 F 75 105/62 08/27/17 21:00 97.5 F 72 16 102/49 08/27/17 19:00 68 16 Pulse Ox 08/28/17 16:04 98 08/28/17 15:50 95 08/28/17 14:54 98 08/28/17 14:52 98 08/28/17 14:36 95 08/28/17 14:12 95 08/28/17 13:31 95 08/28/17 13:16 97 08/28/17 13:01 94 08/28/17 12:49 93 08/28/17 12:37 96 08/28/17 12:26 96 08/28/17 11:11 94 08/28/17 07:21 94 08/28/17 07:00 08/28/17 06:47 99 08/28/17 04:33 98 08/28/17 03:39 98 08/28/17 00:32 99 08/27/17 21:00 98 08/27/17 19:00 Assessment: Right total hip replacement Anemia postsurgical Plan: At this point discussed the case with the hospitalist, Dr. Dior, and since she is having a lot of symptoms secondary to her anemia and multiple medical issues it may be prudent to proceed with transfusion of packed RBCs at this point in time. We will have her continue with physical and occupational therapy as she can tolerate at this point time continue to mobilize. Continue with DVT prophylaxis with her eloquis and a pneumatic sequentials. Pain control seems to be good on oral medications which we will continue
[2017-08-28] MEDS: ATORVASTATIN 40 MG TABLET PO SCH (20:13)
[2017-08-28] MEDS: Insulin Glargine SoloStar Inj 100 UNIT/ML INSULN.PEN SUBCUT SCH (20:15)
[2017-08-29] MEDS: HYDROcodone-APAP 7.5 MG-325 MG TABLET PO PRN ×2 (04:16→07:51)
[2017-08-29 04:38] LABS: Hematocrit [HCT] 30.6 % (37.0-47.0); Hemoglobin [HGB] 10.3 g/dL (12.0-16.0); MEAN CORPUSCULAR HEMOGLOBIN 29.7 PG (27-31); MEAN CORPUSCULAR HGB CONC 33.7 g/dL (33-37); MEAN CORPUSCULAR VOLUME 88.2 FL (81-99); MEAN PLATELET VOLUME 10.5 FL (7.4-12.2); RED BLOOD COUNT 3.47 10^6/uL (4.20-5.40)
[2017-08-29 04:48] LABS: BLOOD UREA NITROGEN 9 mg/dL (7-22)
[2017-08-29] MEDS: DOCUSATE 100 MG CAPSULE PO SCH ×2 (08:08→21:19)
[2017-08-29] MEDS: metFORMIN 500 MG TABLET PO SCH ×2 (08:08→21:19)
[2017-08-29] MEDS: Calcium/Vit D 600mg/400u Tab 1 TAB TABLET PO SCH (08:08)
[2017-08-29] MEDS: GABAPENTIN 300 MG CAPSULE PO SCH ×2 (08:08→21:05)
[2017-08-29] MEDS: CARVEDILOL 3.125 MG TABLET PO SCH ×2 (08:08→21:19)
[2017-08-29] MEDS: FERROUS GLUCONATE 324 MG TABLET PO SCH (08:08)
[2017-08-29] MEDS: VENLAFAXINE XR 75 MG CAP PO SCH ×2 (08:08→21:08)
[2017-08-29] MEDS: Multivitamin Tab 1 TAB PO SCH (08:08)
[2017-08-29] MEDS: Apixaban 5 MG TABLET PO SCH ×2 (08:08→21:19)
[2017-08-29] MEDS: FAMOTIDINE 20 MG TABLET PO SCH ×2 (08:08→21:19)
[2017-08-29] MEDS: LINACLOTIDE 145 MCG PO SCH (08:09)
[2017-08-29] MEDS ORDERED: Sodium Chloride 0.9% 1,000 ML PRIMARY IV ONE ×2 (10:13→11:20)
[2017-08-29] MEDS ORDERED: NALOXONE 0.4 MG/1 ML VIAL IVP PRN (11:05)
[2017-08-29] MEDS ORDERED: Sodium Chloride 0.9% 1,000 ML ONE (11:08)
[2017-08-29 11:20] LABS: Hematocrit [HCT] 28.7 % (37.0-47.0); Hemoglobin [HGB] 9.4 g/dL (12.0-16.0); MEAN CORPUSCULAR HEMOGLOBIN 29.5 PG (27-31); MEAN CORPUSCULAR HGB CONC 32.8 g/dL (33-37); MEAN PLATELET VOLUME 10.2 FL (7.4-12.2); RED BLOOD COUNT 3.19 10^6/uL (4.20-5.40)
[2017-08-29] MEDS ORDERED: LIDOCAINE W/ SODIUM BICARB 0.5 ML SYR ONE (11:41)
--- NOTE | 2017-08-29 12:03 | PT.PROG ---
Progress Note Progress Note: S: pt reports she isn't feeling well today. feels "out of it", pt reports she is very tired. O: nsg okay'd prior to PT. pt transferred down to therapy gym . MHP x20 mins R hip for pain. pt instructed in heel slides/ quad sets. observed pt eyes rolling back into head and pt very lethargic and nauseous. pt felt ill. trial of LAqs x10 each but didn't follow simple commands well due to lethargic. sit to stand w CGA x2 w standard walker. trial of gait training with standard walker with PWB but felt ill and required sit to supine transfer. pt fatigued and was returned to room after speaking with nursing. left in chair with call light within reach and chair alarm activated. A: pt didn't tolerate therapy well today, very lethargic and nauseous. will continue to progress as pt is more medically stable. P: cont per POC
[2017-08-29] MEDS: Sodium Chloride 0.9% 1,000 ML PRIMARY IV SCH ×2 (12:20→21:24)
[2017-08-29] MEDS ORDERED: LIDOCAINE HCL 2 % 10 ML JELLY URO-JECT TOPICAL PRN (12:20)
[2017-08-29 12:59] LABS: BILIRUBIN,URINE MODERATE (NEG); CLARITY,URINE CLEAR (CLEAR); GLUCOSE, URINE (UA) NEGATIVE (NEG); OCCULT BLOOD,URINE NEGATIVE (NEG); PH,URINE 5.5 (5.0-8.5); PROTEIN,URINE 100 mg/dl (NEG)
[2017-08-29 13:07] LABS: COLOR,URINE AMBER (Y)
[2017-08-29 13:08] LABS: BACTERIA,URINE RARE; RENAL EPITHELIAL CELLS,URINE RARE; SQUAMOUS EPITHELIAL CELL,UR MODERATE; URINE SAMPLE TYPE CATH SPECIMEN
[2017-08-29 13:09] LABS: URINE CASTS MODERATE
--- NOTE | 2017-08-29 14:45 | DI ---
EXAM: XR Chest, 2 Views CLINICAL HISTORY: hypoxia TECHNIQUE: Frontal and lateral views of the chest. COMPARISON: No relevant prior studies available. FINDINGS: Lungs: Mild increase in interstitial markings. Linear atelectasis in the mid right lung region. Pleural space: Blunting of posterior costophrenic angles may suggest tiny effusions versus pleural thickening. No pneumothorax. Heart: Unremarkable. No cardiomegaly. Mediastinum: Unremarkable. Bones/joints: Degenerative changes throughout the visualized spine. Vasculature: Curvilinear calcifications in the aortic arch. IMPRESSION: 1. Increased interstitial markings may be related to mild pulmonary vasculature congestion, chronic senescent changes, or a mild interstitial pneumonitis. 2. Blunting of posterior costophrenic angles may suggest tiny effusions versus pleural thickening.
[2017-08-29] MEDS ORDERED: NALOXONE 0.4 MG/1 ML VIAL IVP SCH (15:45)
[2017-08-29] MEDS: FESOTERODINE FUMARATE 8 MG PO SCH (16:01)
--- NOTE | 2017-08-29 16:51 | ORTHO.PROG ---
Last Taken Vital Signs: Vital Signs - Last Taken Temperature 97.9 F 08/29/17 13:00 Pulse Rate 63 08/29/17 13:00 Respiratory Rate 16 08/29/17 13:00 Blood Pressure 94/54 08/29/17 13:00 Pulse Ox 100 08/29/17 13:00 Subjective: Patient noted to be dizzy with some confusion when leaving from therapy going back to the floor, when seen in room she seemed reasonable with her speech motion and answers. She states that she just felt sad. Objective: Examination shows that the patient has full active range of motion of the upper extremities and lower extremities within limits of the surgery she had recently. Her dressing is clean and dry is a mild amount of swelling in the thigh. There is a PREVENA dressing in place with no active issues there is no popliteal adductor hiatus or thigh pain. Laboratory Results 08/29/17 08/29/17 08/29/17 Range/Units 04:22 04:22 11:18 WBC 9.56 9.58 (4.8-10.8) 10^3/uL RBC 3.47 L 3.19 L (4.20-5.40) 10^6/uL Hgb 10.3 L 9.4 L (12.0-16.0) g/dL Hct 30.6 L 28.7 L (37.0-47.0) % MCV 88.2 90.0 (81-99) FL MCH 29.7 29.5 (27-31) PG MCHC 33.7 32.8 L (33-37) g/dL RDW Std Deviation 42.2 43.0 (39-50) fL RDW Coeff of Bethanie 13.6 13.7 (11.5-14.5) % Plt Count 176 157 (140-350) 10*3/uL MPV 10.5 10.2 (7.4-12.2) FL Sodium 134 L (135-145) meq/L Potassium 4.4 (3.8-5.2) meq/L Chloride 97 L (98-112) meq/L Carbon Dioxide 31 (23-33) meq/L Anion Gap 6 (5-20) BUN 9 (7-22) mg/dL Creatinine 0.4 L (0.50-1.20) mg/dL Estimated GFR Movement Assembler BUN/Creatinine Ratio 22.50 H (6-20) Glucose 166 H (78-110) mg/dL Calculated Osmolality 280.0 (267-292) mOsm/kg Calcium 8.4 L (8.7-10.7) mg/dL Troponin I (< 0.040) ng/mL Ur Collection Type Urine Color (Y) Urine Clarity (CLEAR) Urine pH (5.0-8.5) Ur Specific Rye (1.005-1.030) Urine Protein (NEG) mg/dl Urine Glucose (UA) (NEG) mg/dL Urine Ketones (NEG) Urine Occult Blood (NEG) Urine Nitrate (NEG) Urine Bilirubin (NEG) Urine Urobilinogen (0.2) EU/dL Ur Leukocyte Esterase (NEG) Urine RBC (NONE) /hpf Urine WBC (NONE) Ur Squamous Epith Cells (NONE) Ur Renal Epithelial Cell (NONE) Urine Crystals Urine Bacteria (NONE) Urine Casts (NONE) Urine Mucus (NONE) Urine Trichomonas (NONE) Urine Yeast (NONE) Ur Culture Indicated? 08/29/17 08/29/17 Range/Units 12:24 15:42 WBC (4.8-10.8) 10^3/uL RBC (4.20-5.40) 10^6/uL Hgb (12.0-16.0) g/dL Hct (37.0-47.0) % MCV (81-99) FL MCH (27-31) PG MCHC (33-37) g/dL RDW Std Deviation (39-50) fL RDW Coeff of Bethanie (11.5-14.5) % Plt Count (140-350) 10*3/uL MPV (7.4-12.2) FL Sodium (135-145) meq/L Potassium (3.8-5.2) meq/L Chloride (98-112) meq/L Carbon Dioxide (23-33) meq/L Anion Gap (5-20) BUN (7-22) mg/dL Creatinine (0.50-1.20) mg/dL Estimated GFR BUN/Creatinine Ratio (6-20) Glucose (78-110) mg/dL Calculated Osmolality (267-292) mOsm/kg Calcium (8.7-10.7) mg/dL Troponin I < 0.012 (< 0.040) ng/mL Ur Collection Type Cath specimen Urine Color Jacey A (Y) Urine Clarity Clear (CLEAR) Urine pH 5.5 (5.0-8.5) Ur Specific Rye 1.025 (1.005-1.030) Urine Protein 100 A (NEG) mg/dl Urine Glucose (UA) Negative (NEG) mg/dL Urine Ketones 15 (NEG) Urine Occult Blood Negative (NEG) Urine Nitrate Negative (NEG) Urine Bilirubin Moderate (NEG) Urine Urobilinogen 1.0 (0.2) EU/dL Ur Leukocyte Esterase Negative (NEG) Urine RBC None (NONE) /hpf Urine WBC 5-7 (NONE) Ur Squamous Epith Cells Moderate (NONE) Ur Renal Epithelial Cell Rare (NONE) Urine Crystals None Urine Bacteria Rare (NONE) Urine Casts Moderate (NONE) Urine Mucus Many (NONE) Urine Trichomonas None (NONE) Urine Yeast None (NONE) Ur Culture Indicated? Culture set Intake and Output - 8hrs 08/28/17 08/29/17 08/29/17 08/29/17 21:59 05:59 13:59 21:59 Intake: Intake Oral Amount 820 / 820 400 / 400 400 / 400 Dinner 120 / 120 Intake, Blood Product Amount 349 / 349 Packed Red Bld Cells Unit 175 / 175 [id number] Packed Red Bld Cells Unit 174 / 174 [id number] Output: Output, Urine Amount 975 / 975 350 / 350 Other: Percent Meal Consumed Breakfast 100% Dinner 50% Lunch Refused Weight 98.611 kg Weight Measurement Method Standing Scale Vital Signs (24 hrs) Temp Pulse Pulse Resp BP BP Pulse Ox 08/29/17 13:00 97.9 F 63 16 94/54 100 08/29/17 12:02 94/57 08/29/17 07:35 80 08/29/17 07:34 18 08/29/17 06:54 98.1 F 77 18 95/59 98 08/29/17 04:40 97.0 F 80 20 114/73 93 08/29/17 02:17 93 08/29/17 01:00 97.6 F 86 20 123/63 93 08/28/17 21:00 98.0 F 82 18 165/74 93 In asking patient's questions and interacting with the patient her speech is unchanged from what it was prior to surgery she is appropriate in answering her questions she has appropriate responses of back and also asks very pertinent questions. Assessment: Right total hip replacement anterior approach Anemia Relative hypotension with cognitive symptoms Plan: Patient will be followed closely by the hospitalist. Some lab work is been ordered to check for other potential etiologies for the patient's symptoms. She is markedly better apparently from where she was initially when she came back from therapy this morning so I think this is encouraging. She hopefully will continue to improve. Clinically and with my previous experience with the patient she seems very appropriate with no marked deficits whether verbally cognitively or motor the only difference I know with the patient a she states clinically that she feels sad. We'll continue to observe her and hopefully continue to progress with physical therapy.
--- NOTE | 2017-08-29 19:32 | PDOC(PROG) ---
Date and Time of Service: 08/29/2017 192 Interval History: patient seen and evaluated twice today. no complaints of chest pain or shortness of breath. admitted to feeling confused no vomiting, but had nausea. normally on 5 of hydrocodone at home, but could not tell me how many pills daily. IV fluid boluses administered X 2. then rate to 125 mL per hour. lower urine output today. no sign of infection and no symptoms of infection. Objective : Data - Labs CBC and BMP: 08/29/17 11:18 08/29/17 04:22 Additional Lab Results: Selected Entries 08/28/17 07:00 08/28/17 11:09 08/28/17 15:49 Finger Stick Blood Glucose 137 H 162 H 164 H 08/28/17 21:00 08/29/17 11:00 08/29/17 16:00 Finger Stick Blood Glucose 181 H 218 H 226 H 08/29/17 08/29/17 08/29/17 11:18 12:24 15:42 WBC 9.58 Hgb 9.4 L Hct 28.7 L Plt Count 157 Troponin I < 0.012 Urine Protein 100 A - Imaging X-Ray Status: Image Reviewed by Me (cxr on my view is negative for pneumonia.) Objective : Exam - General General Appearance: No Acute Distress, Cooperative Additional General Exam Details: Vital Signs (24 hrs) Temp Pulse Pulse Resp BP BP Pulse Ox 08/29/17 17:00 97.8 F 62 16 111/40 100 08/29/17 13:00 97.9 F 63 16 94/54 100 08/29/17 12:02 94/57 08/29/17 07:35 80 08/29/17 07:34 18 08/29/17 06:54 98.1 F 77 18 95/59 98 08/29/17 04:40 97.0 F 80 20 114/73 93 08/29/17 02:17 93 08/29/17 01:00 97.6 F 86 20 123/63 93 08/28/17 21:00 98.0 F 82 18 165/74 93 - Head Head Exam: Normal Inspection, Normocephalic, Atraumatic - Eye Eye Exam: No Scleral Icterus - ENT ENT Exam: Mucous Membranes Moist - Respiratory Respiratory Exam: Clear to Auscultation - Bilaterally, Breathing Non Labored - Cardiovascular Cardiovascular Exam: RRR, No Murmur, No Clicks, No Gallops, No Rubs, No JVD - GI/Abdominal GI/Abdominal Exam: Normal Bowel Sounds, Non Tender, Non Distended, Soft - Extremities Extremities Exam: No Clubbing Present, No Edema Present, No Cyanosis Present Additional Extremities Exam Details: hip incision is dressed. dressing is clean, dry and intact. - Neurological Neurological Exam: Alert, No Facial Droop, Speech Intact / Clear, Moves All Extremities Equally (formal muscle testing not done with recent surgery, but no focal findings), Altered (oriented to person, not to time. aware she is confused.) - Integumentary Integumentary Exam: Warm, Dry, Intact Additional Integumentary Exam Details: appears pale Assessment and Plan - Patient Problems (1) Hypotension Current Visit: Yes Status: Acute Code(s): I95.9 - Hypotension, unspecified Qualifiers: Hypotension type: unspecified hypotension type Qualified Code(s): I95.9 - Hypotension, unspecified (2) Diabetes type 2, controlled Current Visit: No Status: Chronic Code(s): E11.9 - Type 2 diabetes mellitus without complications Qualifiers: Diabetes mellitus complication status: without complication Diabetes mellitus technician terminal and repeater insulin use: with usp use Qualified Code(s): E11.9 - Type 2 diabetes mellitus without complications; Z79.4 - terminal worker (current) use of insulin (3) Hypertension Current Visit: Yes Status: Chronic Code(s): I10 - Essential (primary) hypertension Qualifiers: Hypertension type: essential hypertension Qualified Code(s): I10 - Essential (primary) hypertension (4) Hyperlipidemia Current Visit: Yes Status: Chronic Code(s): E78.5 - Hyperlipidemia, unspecified Qualifiers: Hyperlipidemia type: unspecified Qualified Code(s): E78.5 - Hyperlipidemia , unspecified (5) GERD (gastroesophageal reflux disease) Current Visit: No Status: Chronic Code(s): K21.9 - Gastro-esophageal reflux disease without esophagitis Qualifiers: Esophagitis presence: esophagitis presence not specified Qualified Code(s) : K21.9 - Gastro-esophageal reflux disease without esophagitis (6) Peripheral neuropathy Current Visit: No Status: Chronic Code(s): G62.9 - Polyneuropathy, unspecified Qualifiers: Peripheral neuropathy type: polyneuropathy, unspecified Qualified Code(s): G62.9 - Polyneuropathy, unspecified (7) Status post right hip replacement Current Visit: Yes Status: Acute Code(s): Z96.641 - Presence of right artificial hip joint (8) Postoperative anemia due to acute blood loss Current Visit: Yes Status: Acute Code(s): D62 - Acute posthemorrhagic anemia - Assessment / Plan Additional Assessment/Plan Details: I doubt stroke--no focal findings. apparently has had history of recent stroke--several medications, and post operative care, could cause altered mental status, including pain medications, anticholinergics, anemia, blood transfusion, etc., so will eliminate mind altering medications as much as possible IV fluids for hypotension. ACEI/ARB appropriately held post op--sometimes can cause post operative hypotension, placed billingsley to monitor fluids UA orderd--does not look like infection CXR negative for pneumonia hold anti-HTN medications check labs in AM improved through day in my discussion with ortho--less confused, blood pressures are better.
[2017-08-29] MEDS: Insulin Glargine SoloStar Inj 100 UNIT/ML INSULN.PEN SUBCUT SCH (21:19)
[2017-08-29] MEDS: ATORVASTATIN 40 MG TABLET PO SCH (21:19)
[2017-08-30] MEDS: ACETAMINOPHEN 325 MG TABLET PO PRN ×3 (04:27→19:53)
[2017-08-30 05:45] LABS: Hemoglobin [HGB] 9.3 g/dL (12.0-16.0); MEAN CORPUSCULAR HEMOGLOBIN 29.2 PG (27-31); MEAN CORPUSCULAR HGB CONC 32.1 g/dL (33-37); MEAN CORPUSCULAR VOLUME 91.2 FL (81-99); RED BLOOD COUNT 3.18 10^6/uL (4.20-5.40)
[2017-08-30 06:01] LABS: BLOOD UREA NITROGEN 10 mg/dL (7-22); SERUM ALBUMIN 2.3 g/dL (3.5-4.8)
[2017-08-30] MEDS: Sodium Chloride 0.9% 1,000 ML PRIMARY IV SCH (06:43)
--- NOTE | 2017-08-30 09:20 | ORTHO.PROG ---
Last Taken Vital Signs: Vital Signs - Last Taken Temperature 98.1 F 08/30/17 07:08 Pulse Rate 63 08/30/17 07:08 Respiratory Rate 20 08/30/17 07:08 Blood Pressure 128/59 08/30/17 07:08 Pulse Ox 97 08/30/17 07:08 Subjective: Patient notes she's doing better this morning she feels better than she did yesterday her pain is reasonably well-controlled on oral Tylenol at the current time. She does not feel dizzy or lightheaded. Objective: Examination of the left lower extremity shoulders, popliteal, adductor hiatus or venous pain she has a mild amount of swelling in the thigh region approximately her suction dressing is in place with no active issues this is a superficial dressing. She has no redness or erythema or evidence of infection. The dressing is working and no active drainage. Motor and sensory exam is nonfocal her verbal abilities are good she is cognitively intact. No focal findings Laboratory Results 08/29/17 08/29/17 08/29/17 Range/Units 11:18 12:24 15:42 WBC 9.58 (4.8-10.8) 10^3/uL RBC 3.19 L (4.20-5.40) 10^6/uL Hgb 9.4 L (12.0-16.0) g/dL Hct 28.7 L (37.0-47.0) % MCV 90.0 (81-99) FL MCH 29.5 (27-31) PG MCHC 32.8 L (33-37) g/dL RDW Std Deviation 43.0 (39-50) fL RDW Coeff of Bethanie 13.7 (11.5-14.5) % Plt Count 157 (140-350) 10*3/uL MPV 10.2 (7.4-12.2) FL ESR (0-20) MM/HR Sodium (135-145) meq/L Potassium (3.8-5.2) meq/L Chloride (98-112) meq/L Carbon Dioxide (23-33) meq/L Anion Gap (5-20) BUN (7-22) mg/dL Creatinine (0.50-1.20) mg/dL Estimated GFR BUN/Creatinine Ratio (6-20) Glucose (78-110) mg/dL Calculated Osmolality (267-292) mOsm/kg Calcium (8.7-10.7) mg/dL Total Bilirubin (0.3-1.2) mg/dL AST (8-39) IU/L ALT (9-52) IU/L Alkaline Phosphatase (38-126) IU/L Troponin I < 0.012 (< 0.040) ng/mL C-Reactive Protein (0.0-0.9) mg/dL Total Protein (6.1-8.0) g/dL Albumin (3.5-4.8) g/dL Globulin (2.50-4.10) g/dL Albumin/Globulin Ratio (1.3-2.0) mg/g Ur Collection Type Cath specimen Urine Color Jacey A (Y) Urine Clarity Clear (CLEAR) Urine pH 5.5 (5.0-8.5) Ur Specific Keene 1.025 (1.005-1.030) Urine Protein 100 A (NEG) mg/dl Urine Glucose (UA) Negative (NEG) mg/dL Urine Ketones 15 (NEG) Urine Occult Blood Negative (NEG) Urine Nitrate Negative (NEG) Urine Bilirubin Moderate (NEG) Urine Urobilinogen 1.0 (0.2) EU/dL Ur Leukocyte Esterase Negative (NEG) Urine RBC None (NONE) /hpf Urine WBC 5-7 (NONE) Ur Squamous Epith Cells Moderate (NONE) Ur Renal Epithelial Cell Rare (NONE) Urine Crystals None Urine Bacteria Rare (NONE) Urine Casts Moderate (NONE) Urine Mucus Many (NONE) Urine Trichomonas None (NONE) Urine Yeast None (NONE) Ur Culture Indicated? 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 BUN/Creatinine Ratio 25.00 H (6-20) Glucose 147 H (78-110) mg/dL Calculated Osmolality 283.0 (267-292) mOsm/kg Calcium 8.1 L (8.7-10.7) mg/dL Total Bilirubin 0.8 (0.3-1.2) mg/dL AST 22 (8-39) IU/L ALT 36 (9-52) IU/L Alkaline Phosphatase 53 (38-126) IU/L Troponin I (< 0.040) ng/mL C-Reactive Protein 17.6 H (0.0-0.9) mg/dL Total Protein 4.7 L (6.1-8.0) g/dL Albumin 2.3 L (3.5-4.8) g/dL Globulin 2.4 L (2.50-4.10) g/dL Albumin/Globulin Ratio 0.90 L (1.3-2.0) mg/g Ur Collection Type Urine Color (Y) Urine Clarity (CLEAR) Urine pH (5.0-8.5) Ur Specific Keene (1.005-1.030) Urine Protein (NEG) mg/dl Urine Glucose (UA) (NEG) mg/dL Urine Ketones (NEG) Urine Occult Blood (NEG) Urine Nitrate (NEG) Urine Bilirubin (NEG) Urine Urobilinogen (0.2) EU/dL Ur Leukocyte Esterase (NEG) Urine RBC (NONE) /hpf Urine WBC (NONE) Ur Squamous Epith Cells (NONE) Ur Renal Epithelial Cell (NONE) Urine Crystals Urine Bacteria (NONE) Urine Casts (NONE) Urine Mucus (NONE) Urine Trichomonas (NONE) Urine Yeast (NONE) Ur Culture Indicated? Vital Signs (24 hrs) Temp Pulse Pulse Resp BP BP Pulse Ox 03/03/18 07:08 98.1 F 63 20 128/59 97 08/30/17 04:57 98.4 F 77 20 129/55 97 08/30/17 04:41 97 08/29/17 23:47 98.4 F 62 21 118/52 93 08/29/17 20:05 97.4 F 65 20 106/51 93 08/29/17 19:00 80 65 20 08/29/17 17:00 97.8 F 62 16 111/40 100 08/29/17 13:00 97.9 F 63 16 94/54 100 08/29/17 12:02 94/57 Assessment: Right total hip replacement doing well Anemia stable Lightheadedness and confusion yesterday likely secondary to hypotension possible combination antihypertensives, postsurgical of fluid issues and narcotics-patient doing markedly better today Plan: Patient is doing markedly better today we will have her continue with physical therapy of discussed this with therapy today we'll do about 50-60 pounds weightbearing for the hip or protecting this since we did cable this as a precaution. We will continue with ice protection pain medication as needed and continue her anticoagulant medication for her previous history of stroke. I drawn some baseline labs since it was a question could the early source of her lightheadedness and symptoms be infection where a UA was done but I ordered a sedimentation rate and C-reactive protein which are both elevated as I would expect at this point which will be a baseline as we move forward in time.
[2017-08-30] MEDS: metFORMIN 500 MG TABLET PO SCH ×2 (09:42→20:00)
[2017-08-30] MEDS: VENLAFAXINE XR 75 MG CAP PO SCH ×2 (09:42→19:59)
[2017-08-30] MEDS: DOCUSATE 100 MG CAPSULE PO SCH ×2 (09:42→19:59)
[2017-08-30] MEDS: Multivitamin Tab 1 TAB PO SCH (09:43)
[2017-08-30] MEDS: GABAPENTIN 300 MG CAPSULE PO SCH ×2 (09:43→19:59)
[2017-08-30] MEDS: LINACLOTIDE 145 MCG PO SCH (09:43)
[2017-08-30] MEDS: FAMOTIDINE 20 MG TABLET PO SCH ×2 (09:43→19:59)
[2017-08-30] MEDS: HYDROcodone-APAP 5 MG -325 MG TABLET PO PRN (09:43)
[2017-08-30] MEDS: CARVEDILOL 3.125 MG TABLET PO SCH ×2 (09:43→19:59)
[2017-08-30] MEDS: Calcium/Vit D 600mg/400u Tab 1 TAB TABLET PO SCH (09:43)
[2017-08-30] MEDS: FERROUS GLUCONATE 324 MG TABLET PO SCH (09:43)
[2017-08-30] MEDS: Apixaban 5 MG TABLET PO SCH ×2 (09:44→19:59)
[2017-08-30] MEDS: ATORVASTATIN 40 MG TABLET PO SCH (20:00)
[2017-08-30] MEDS: Insulin Glargine SoloStar Inj 100 UNIT/ML INSULN.PEN SUBCUT SCH (20:00)
--- NOTE | 2017-08-30 22:20 | PDOC(PROG) ---
Date and Time of Service: 08/30/2017, 11:30 Interval History: no chest pain, SOB, nausea or vomiting. hip pain controlled. mental status greatly improved. no fevers and no chills Objective : Data - Labs CBC and BMP: 08/30/17 04:20 08/30/17 04:20 Additional Lab Results: 08/29/17 16:37 Blood Culture - Preliminary Blood NO GROWTH AFTER 24 HOURS Selected Entries 08/29/17 16:00 08/29/17 20:05 08/30/17 07:00 Finger Stick Blood Glucose 226 H 192 H 144 H 08/30/17 11:00 08/30/17 16:00 08/30/17 20:42 Finger Stick Blood Glucose 156 H 161 H 217 H Objective : Exam - General General Appearance: No Acute Distress, Cooperative Additional General Exam Details: Vital Signs - Last Taken Temperature 97.8 F 08/30/17 20:42 Pulse Rate 78 08/30/17 20:42 Respiratory Rate 21 08/30/17 20:42 Blood Pressure 161/67 08/30/17 20:42 Pulse Ox 97 08/30/17 20:42 - Eye Eye Exam: No Scleral Icterus - ENT ENT Exam: Mucous Membranes Moist - Respiratory Respiratory Exam: Clear to Auscultation - Bilaterally, Breathing Non Labored - Cardiovascular Cardiovascular Exam: RRR, No Murmur, No Clicks, No Gallops, No Rubs, No JVD - GI/Abdominal GI/Abdominal Exam: Normal Bowel Sounds, Non Tender, Non Distended, Soft - Extremities Extremities Exam: No Clubbing Present, No Edema Present, No Cyanosis Present - Neurological Neurological Exam: Alert, Oriented x 3, No Facial Droop, Speech Intact / Clear Assessment and Plan - Patient Problems (1) Diabetes type 2, controlled Current Visit: No Status: Chronic Code(s): E11.9 - Type 2 diabetes mellitus without complications Qualifiers: Diabetes mellitus complication status: without complication Diabetes mellitus group home insulin use: with group home use Qualified Code(s): E11.9 - Type 2 diabetes mellitus without complications; Z79.4 - snf (current) use of insulin (2) Hypertension Current Visit: Yes Status: Chronic Code(s): I10 - Essential (primary) hypertension Qualifiers: Hypertension type: essential hypertension Qualified Code(s): I10 - Essential (primary) hypertension (3) Hyperlipidemia Current Visit: Yes Status: Chronic Code(s): E78.5 - Hyperlipidemia, unspecified Qualifiers: Hyperlipidemia type: unspecified Qualified Code(s): E78.5 - Hyperlipidemia , unspecified (4) GERD (gastroesophageal reflux disease) Current Visit: No Status: Chronic Code(s): K21.9 - Gastro-esophageal reflux disease without esophagitis Qualifiers: Esophagitis presence: esophagitis presence not specified Qualified Code(s) : K21.9 - Gastro-esophageal reflux disease without esophagitis (5) Peripheral neuropathy Current Visit: No Status: Chronic Code(s): G62.9 - Polyneuropathy, unspecified Qualifiers: Peripheral neuropathy type: polyneuropathy, unspecified Qualified Code(s): G62.9 - Polyneuropathy, unspecified (6) Status post right hip replacement Current Visit: Yes Status: Acute Code(s): Z96.641 - Presence of right artificial hip joint (7) Postoperative anemia due to acute blood loss Current Visit: Yes Status: Acute Code(s): D62 - Acute posthemorrhagic anemia (8) Hypotension Current Visit: Yes Status: Resolved Code(s): I95.9 - Hypotension, unspecified Qualifiers: Hypotension type: unspecified hypotension type Qualified Code(s): I95.9 - Hypotension, unspecified - Assessment / Plan Additional Assessment/Plan Details: hypotension resolved with fluids. still unclear why hypotensive, but no sign of infection breast tenderness resolved. will need to arrange a follow up with surgery to evaluate right breast mass/lump PT and OT no BP meds for now no changes to DM medication regimen DVT prophylaxis with eliquis (on in setting of stroke--afib?) patient seen, examined earlier today.
[2017-08-31] MEDS: ACETAMINOPHEN 325 MG TABLET PO PRN ×2 (04:11→11:21)
[2017-08-31] MEDS: HYDROcodone-APAP 5 MG -325 MG TABLET PO PRN (08:15)
[2017-08-31] MEDS: VENLAFAXINE XR 75 MG CAP PO SCH ×2 (08:16→21:06)
[2017-08-31] MEDS: metFORMIN 500 MG TABLET PO SCH ×2 (08:16→21:06)
[2017-08-31] MEDS: Calcium/Vit D 600mg/400u Tab 1 TAB TABLET PO SCH (08:16)
[2017-08-31] MEDS: DOCUSATE 100 MG CAPSULE PO SCH ×2 (08:17→21:06)
[2017-08-31] MEDS: CARVEDILOL 3.125 MG TABLET PO SCH ×2 (08:17→21:06)
[2017-08-31] MEDS: Multivitamin Tab 1 TAB PO SCH (08:17)
[2017-08-31] MEDS: FAMOTIDINE 20 MG TABLET PO SCH ×2 (08:17→21:05)
[2017-08-31] MEDS: FERROUS GLUCONATE 324 MG TABLET PO SCH (08:17)
[2017-08-31] MEDS: Apixaban 5 MG TABLET PO SCH ×2 (08:17→21:06)
[2017-08-31] MEDS: GABAPENTIN 300 MG CAPSULE PO SCH ×2 (08:17→21:06)
[2017-08-31] MEDS: LINACLOTIDE 145 MCG PO SCH (08:50)
--- NOTE | 2017-08-31 12:21 | ORTHO.PROG ---
Last Taken Vital Signs: Vital Signs - Last Taken Temperature 97.7 F 08/31/17 11:28 Pulse Rate 93 08/31/17 11:28 Respiratory Rate 18 08/31/17 11:28 Blood Pressure 154/79 08/31/17 11:28 Pulse Ox 93 08/31/17 11:28 Subjective: Patient notes her pain is a little bit more pronounced today but has had pain in the anterolateral aspect of the hip joint region since surgery. Patient is on a elaquis for history of previous stroke the remote past. Patient notes episode of numbness sitting when getting on the toilet today with no raise toilet seat Objective: Examination shows that the patient's PREVENA suction dressing is in place was working fine skin around this has some ecchymosis. There is ecchymosis over the greater trochanteric region and also along the incision area mostly laterally mild amount of swelling to the leg. Denies any Popliteal adductor hiatus or thigh pain. Bleeding. Intake and Output - 8hrs 08/30/17 08/30/17 08/31/17 08/31/17 13:59 21:59 05:59 13:59 Intake: IV 2103 / 2103 Intake Oral Amount 240 / 240 750 / 750 400 / 400 400 / 400 Lunch 240 / 240 200 / 200 Output: Output, Urinary Catheter Amount 1050 / 1050 Output, Urine Amount 25 / 25 250 / 250 250 / 250 200 / 200 Output, Urine/Stool Mix Amount 750 / 750 Other: Percent Meal Consumed Breakfast 50% Dinner 50% Lunch 50% Refused Output,Number of Bowel 1 Movements Number of Incontient Voids 1 Number of Voids 1 1 Weight 97.069 kg 99.427 kg Weight Measurement Method Standing Scale Vital Signs (24 hrs) Temp Pulse Pulse Resp BP BP Pulse Ox 08/31/17 11:28 97.7 F 93 18 154/79 93 08/31/17 07:00 74 16 08/31/17 06:30 97.3 F 73 18 149/69 100 08/31/17 05:00 97.9 F 76 19 158/68 99 08/31/17 00:27 98.4 F 72 20 142/68 94 08/30/17 20:42 97.8 F 78 21 161/67 97 08/30/17 19:00 76 20 08/30/17 17:00 97.1 F 76 20 137/79 94 08/30/17 13:00 97.9 F 67 20 135/58 96 Assessment: Right total hip replacement overall doing reasonably well seems to be improving patient feels subjectively she is improving each day. Anemia Confusion seems to resolve most likely secondary to narcotics and post operative fluid volume issues. Plan: Patient will continue with physical therapy and occupational therapy. Discussed with nursing issues in regard to specific so with mobilization including weightbearing about 50-60 pounds. We'll proceed with some x-rays in the a.m. for postoperative check. We will also switch out her dressing most likely tomorrow and place a Silverlon dressing. 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 Continue with anticoagulation primarily for her history of stroke.
--- NOTE | 2017-08-31 12:36 | PT.PROG ---
Progress Note Progress Note: S: pt. states she is apprehensive about doing therapy. Agreed to perform activities in her room. Spoke with Dr. May today who stated he would like her to be 50-60# weight bearing. O: Treatment consisted of functional activities: bed mobility from supine to sit , sit to stands x 5, ambulating in room approx 5 feet from EOB to recliner. Pt. was left in recliner with call button within reach. A: pt. was apprehensive today with transfers and moving. She performed activities well after she began moving and transitioning. She is still limited with weight bearing which is still a safety concern for independence. She continues to be appropriate for swing bed status. P: Continue per POC to increase strength and activity tolerance. Kala Lyle, P[employer]ER
[2017-08-31] MEDS: HYDROcodone-APAP 7.5 MG-325 MG TABLET PO PRN ×2 (12:39→19:18)
[2017-08-31 13:09] LABS: Hematocrit [HCT] 30.1 % (37.0-47.0); Hemoglobin [HGB] 9.8 g/dL (12.0-16.0); MEAN CORPUSCULAR HEMOGLOBIN 29.3 PG (27-31); MEAN CORPUSCULAR HGB CONC 32.6 g/dL (33-37); MEAN CORPUSCULAR VOLUME 89.9 FL (81-99); MEAN PLATELET VOLUME 9.5 FL (7.4-12.2); RED BLOOD COUNT 3.35 10^6/uL (4.20-5.40)
--- NOTE | 2017-08-31 13:51 | DI ---
EXAM: XR Left Hip With Pelvis When Performed, 2 or 3 Views CLINICAL HISTORY: pain to right hip TECHNIQUE: Two or three views of the left hip, with pelvis when performed. COMPARISON: No relevant prior studies available. FINDINGS: Bones/joints: Status post left hip replacement. Intact appearance of the hardware with expected alignment. Degenerative joint space narrowing in the left hip. No acute fracture. Soft tissues: Surgical kristel in the lateral soft tissues. IMPRESSION: Status post left hip replacement. Intact appearance of the hardware with expected alignment.
--- NOTE | 2017-08-31 18:14 | PDOC(PROG) ---
Date and Time of Service: 08/31/2017, 1809 Interval History: no chest pains. no SOB no nausea or vomiting had increased pain, but attributed it to depends and pants being tight. Objective : Data - Labs CBC and BMP: 08/31/17 12:46 08/30/17 04:20 Additional Lab Results: Selected Entries 08/31/17 06:27 08/31/17 11:28 08/31/17 16:05 Finger Stick Blood Glucose 159 H 197 H 188 H Objective : Exam - General General Appearance: No Acute Distress, Cooperative Additional General Exam Details: Vital Signs (24 hrs) Temp Pulse Pulse Resp BP BP Pulse Ox 08/31/17 16:06 97.6 F 94 18 143/91 96 08/31/17 11:28 97.7 F 93 18 154/79 93 08/31/17 07:00 74 16 08/31/17 06:30 97.3 F 73 18 149/69 100 08/31/17 05:00 97.9 F 76 19 158/68 99 08/31/17 00:27 98.4 F 72 20 142/68 94 08/30/17 20:42 97.8 F 78 21 161/67 97 08/30/17 19:00 76 20 - Eye Eye Exam: No Scleral Icterus - ENT ENT Exam: Mucous Membranes Moist - Respiratory Respiratory Exam: Clear to Auscultation - Bilaterally, Breathing Non Labored - Cardiovascular Cardiovascular Exam: RRR, No Murmur, No Clicks, No Gallops, No Rubs, No JVD - GI/Abdominal GI/Abdominal Exam: Normal Bowel Sounds, Non Tender, Non Distended, Soft - Extremities Extremities Exam: No Clubbing Present, No Cyanosis Present, +1 Edema (right lower extremity) Additional Extremities Exam Details: some bruising around the hip wound. - Neurological Neurological Exam: Alert, Oriented x 3, No Facial Droop, Speech Intact / Clear Assessment and Plan - Patient Problems (1) Diabetes type 2, controlled Current Visit: Yes Status: Chronic Code(s): E11.9 - Type 2 diabetes mellitus without complications Qualifiers: Diabetes mellitus complication status: without complication Diabetes mellitus termite helper insulin use: with termite helper use Qualified Code(s): E11.9 - Type 2 diabetes mellitus without complications; Z79.4 - termite helper (current) use of insulin (2) Hypertension Current Visit: Yes Status: Chronic Code(s): I10 - Essential (primary) hypertension Qualifiers: Hypertension type: essential hypertension Qualified Code(s): I10 - Essential (primary) hypertension (3) Hyperlipidemia Current Visit: Yes Status: Chronic Code(s): E78.5 - Hyperlipidemia, unspecified Qualifiers: Hyperlipidemia type: unspecified Qualified Code(s): E78.5 - Hyperlipidemia , unspecified (4) GERD (gastroesophageal reflux disease) Current Visit: No Status: Chronic Code(s): K21.9 - Gastro-esophageal reflux disease without esophagitis Qualifiers: Esophagitis presence: esophagitis presence not specified Qualified Code(s) : K21.9 - Gastro-esophageal reflux disease without esophagitis (5) Peripheral neuropathy Current Visit: No Status: Chronic Code(s): G62.9 - Polyneuropathy, unspecified Qualifiers: Peripheral neuropathy type: polyneuropathy, unspecified Qualified Code(s): G62.9 - Polyneuropathy, unspecified (6) Status post right hip replacement Current Visit: Yes Status: Acute Code(s): Z96.641 - Presence of right artificial hip joint (7) Postoperative anemia due to acute blood loss Current Visit: Yes Status: Acute Code(s): D62 - Acute posthemorrhagic anemia (8) Hypotension Current Visit: Yes Status: Resolved Code(s): I95.9 - Hypotension, unspecified Qualifiers: Hypotension type: unspecified hypotension type Qualified Code(s): I95.9 - Hypotension, unspecified - Assessment / Plan Additional Assessment/Plan Details: discussed with ortho. we will adjust pain mediations. will go to 1 tablet 7.5 hydrocodone PRN. would like to avoid over doing pain medications due to sedation. mental status greatly improved PT and OT probably needs swing bed hemoglobin does not reflect worsened bleeding. no evidence of infection no change to DM regimen.
[2017-08-31] MEDS: ATORVASTATIN 40 MG TABLET PO SCH (21:06)
[2017-08-31] MEDS: Insulin Glargine SoloStar Inj 100 UNIT/ML INSULN.PEN SUBCUT SCH (21:06)
--- NOTE | 2017-09-01 08:41 | ORTHO.PROG ---
Last Taken Vital Signs: Vital Signs - Last Taken Temperature 97.5 F 09/01/17 06:53 Pulse Rate 75 09/01/17 06:53 Respiratory Rate 17 09/01/17 06:53 Blood Pressure 149/85 09/01/17 06:53 Pulse Ox 100 09/01/17 06:53 Subjective: Patient notes pain well-controlled today she notes yesterday having marked increasing pain and we were concerned and got x-rays of the hip after she had a event try to get on the toilet falling onto the toilet because it was further than she thought. Other issue she attributes her pain as soon as she remove the depends which she had on and the closing she felt that this was too tight and this helped relieve her pain. Objective: Patient's dressing looks fine at the current time, there is no fluid in the suction device. It is working appropriately. Patient with mild to moderate swelling of the thigh unchanged. She has no calf, popliteal adductor hiatus pain. Motor and sensory exam in the lower extremity is normal. She has good pulses and brisk refill Intake and Output - 8hrs 08/31/17 08/31/17 09/01/17 09/01/17 13:59 21:59 05:59 13:59 Intake: Intake Oral Amount 400 / 400 815 / 815 500 / 500 Dinner 240 / 240 Lunch 200 / 200 Output: Output, Urine Amount 200 / 200 450 / 450 Other: Percent Meal Consumed Dinner 75% Lunch Refused Output,Number of Bowel 1 Movements Number of Voids 1 1 Vital Signs (24 hrs) Temp Pulse Pulse Resp BP Pulse Ox 09/01/17 06:53 97.5 F 75 17 149/85 100 09/01/17 05:43 95 09/01/17 05:00 97.6 F 96 16 150/68 97 09/01/17 01:00 97.4 F 92 16 141/65 98 08/31/17 21:00 97 F 100 18 154/64 100 08/31/17 19:00 74 100 18 08/31/17 16:06 97.6 F 94 18 143/91 96 08/31/17 11:28 97.7 F 93 18 154/79 93 Patient's x-rays of the pelvis and right hip show no evidence of calcar fracture subsidence or other active issues. Assessment: Right total hip replacement overall doing well Confusion resolved Anemia Plan: At the current time patient seems to be doing relatively well we may wish to consider her for senior care bed. I don't think she has inability to go home she would require some extensive rehabilitation and is making progress forward it may be a good candidate for inpatient rehabilitation. I'll discuss this with the hospitalist today. Continue with previous plan.
[2017-09-01] MEDS: DOCUSATE 100 MG CAPSULE PO SCH (08:55)
[2017-09-01] MEDS: metFORMIN 500 MG TABLET PO SCH (08:55)
[2017-09-01] MEDS: VENLAFAXINE XR 75 MG CAP PO SCH (08:55)
[2017-09-01] MEDS: HYDROcodone-APAP 7.5 MG-325 MG TABLET PO PRN (08:55)
[2017-09-01] MEDS: Multivitamin Tab 1 TAB PO SCH (08:55)
[2017-09-01] MEDS: Apixaban 5 MG TABLET PO SCH (08:56)
[2017-09-01] MEDS: LINACLOTIDE 145 MCG PO SCH (08:56)
[2017-09-01] MEDS: FAMOTIDINE 20 MG TABLET PO SCH (08:56)
[2017-09-01] MEDS: GABAPENTIN 300 MG CAPSULE PO SCH (08:56)
[2017-09-01] MEDS: Calcium/Vit D 600mg/400u Tab 1 TAB TABLET PO SCH (08:56)
[2017-09-01] MEDS: FERROUS GLUCONATE 324 MG TABLET PO SCH (08:56)
[2017-09-01] MEDS: CARVEDILOL 3.125 MG TABLET PO SCH (08:56)
--- NOTE | 2017-09-01 10:35 | OTI REPORT ---
Thank you for the referral of Zelda Reyez. She was seen on 08/29/17 for an occupational therapy inpatient evaluation status post right total hip arthroplasty. SUBJECTIVE: The patient is a 81-year-old female who is being seen secondary to having a right total hip arthroplasty. The patient lives in [place] by herself. She states her son comes over and helps her quite frequently. Prior to admission the patient was independent with showering self and dressing self. She does get Meals on Wheels but does make simple meals for herself. The patient does receive assistance with driving and grocery shopping. The patient has a higher toilet seat, a bath chair in the shower, and a grab bar in the shower. PAST MEDICAL HISTORY: Past medical history can be found in the patient's medical record. OBJECTIVE FINDINGS: General observations: The patient was slightly lethargic today; however, nursing stated that was secondary to having her pain medication. Bed mobility: The patient was able to come from supine to sit with moderate assistance. Activities of daily living: While the patient sat edge of bed, she was educated in a vocational nursing instructor and sock aide. She needed min assist to use the vocational nursing instructor to don pants and mod assist to doff her socks. She needed mod assist to use the sock aide. Transfers: The patient was able to transfer from sit to stand with min assist and walked over to the sink to complete hygiene activities for approximately 4 minutes. Oxygen: The patient is on two liters of oxygen. ASSESSMENT: Problem List: Decreased ability to perform ADLs Patient would benefit from education on use of adaptive devices and equipment Decreased ability to perform functional transfers Short-Term Goals: To be met by discharge from inpatient: Patient will be educated on adaptive equipment use. TREATMENT PLAN: Patient will be seen B.I.D during the week and one time per day over the weekend as an inpatient to address the above goals and objectives. INITIAL TREATMENT: Treatment today consisted of the initial evaluation. The patient was issued a vocational nursing instructor and sock aide. She was shown other adaptive devices, but thought she would be fine with just the vocational nursing instructor and the sock aide. She still needs min to mod assist to use the adaptive devices. The patient needed min assist to keep her balance for sink activities and functional transfers. SANDID
[2017-09-01 11:12] VITALS: BP 109/64; RESP 18; TEMP 97.8; O2SAT 96
--- NOTE | 2017-09-01 11:49 | PT AM DAY ---
Diagnosis : Right Total Hip Arthroplasty AM - Physical Therapy S: The patient states she is doing a little bit better this morning; however, she states that when she was in the bathroom earlier today, she turned and felt that she was going to fall over with her walker. The patient denied any fall, but she is worried to use the standard walker as she feels that she is at a higher risk to fall when using it. The therapist did discuss with our DIRECTOR OF STRATEGIC PROGRAMS that the patient is to be partial weight-bearing, 50-60 pounds on her right lower extremity per Dr. May's orders. The therapist did discuss with the patient that we do have to use the standard walker at this time with those weight-bearing precautions as she would like to move to her four wheeled walker. We did discuss that once her precautions are lifted, she could probably transition to the four wheeled walker. O: The patient ambulated x10 feet to wheelchair and was brought down to therapy where she received an application of moist heat pack x20 minutes including set up to her right hip. The patient performed bilateral upper extremity strengthening exercises while supine with red theraband. Arm exercises were performed in all planes of motion. The patient was then instructed in quad sets and heel slides bilaterally, short arc quads bilaterally , and four way ankle exercises on the right. We did work on transferring into and out of bed with hooking the right lower extremity. The patient did require assist of one in order to sit up, but was able to transfer from seated to supine independently onto the mat. Once in a seated position, the patient was instructed on sit to stands and she completed 3 sit to stands, following her correct weight-bearing precautions. The patient stated she was quite fatigued at the end of treatment. The therapist and the patient discussed how to ambulate correctly weigh her weight-bearing precautions. We then worked more on her ambulation and the patient was able to ambulate 20 feet utilizing correct weight-bearing precautions and use of the standard walker with contact guard assist x1 and mod verbal cueing. The patient was then brought up to her room. She stated she would like to have PT look at the bathroom and see if there is any adjustment they can do so that she doesn't feel like she is going to fall when she is in the bathroom again. The therapist did inspect the toilet raiser and adjusted it to a slightly higher height so that it would be easier for her to get onto and off of. We then worked on a transfer into the bathroom, utilizing the walker to get all the way turned around and working on how to properly sit to stand with her weight-bearing precautions from the toilet riser. The patient did very well with this activity and stated that she felt safer with the toilet riser a little higher. With toileting activity, the patient did require assistance in order to change her brief and help don her pants as well as contact guard assist x1 when she was redressing her lower half. The patient then demonstrated proper weight-bearing precautions and use of walker from her bathroom to her bed. The patient did require mod assist x1 in order to move from seated to supine due to her fatigue level. The patient was left in bed with call light within reach and bed alarm set. A: The patient participated very well in therapy this morning. After some discussion about her weight-bearing precautions, the patient demonstrated the ability to ambulate in a correct manner and follow her weight-bearing precautions. The patient does fatigue fairly easily with activities but was very willing to try exercises and did actually come down to therapy, so we are definitely making progress in the right direction. P: Continue seeing patient BID during the week and one time per day over the weekend for transfers, ambulation, and range of motion/strengthening exercises. KENAN
--- NOTE | 2017-09-01 12:01 | OT.PROG ---
Progress Note Progress Note: S: pt reported that she has not really used the adaptive equipment. O: pt was seen in her room in the am. She was educated/demonstrated on sock aid and child development assistant before she attempted. She completed L non affected side with sock aid Ind, but R affected side she needed min a to complete. She also used child development assistant to dress Le garments also needing min A. She completed UE dressing Ind. She then completed functional transfer to [facility] with CGA for safety before sitting in w/c. She transferred downstairs and received moist heat to R affected side for 20 min. A: pt may benefit from some more practice with A.E. to increase Ind with dressing. P: continue per POC.
--- NOTE | 2017-09-01 14:00 | DCSUMMARY ---
Hospitalization Summary Admit Date: 08/26/2017, 1340 Discharge Date: 09/01/17 Primary Diagnosis:: right hip replacement Hospital Course: This is a 81 YO that presented here for a hip replacement on the right side done by Dr. May on 08.26.2017. Please see his operative note. Post operative course was complicated by blood transfusion, some confusion that resolved with medications and slow progress with therapy. She was placed on eliquis for DVT prophylaxis and stroke prevention. As she finally improved enough, she was accepted to a swing bed. Today, her hip pain is controlled, no chest pain, no shortness of breath. The patient has a right breast lump/mass that she noted that we will get follow up post swing bed. Assessment and Plan: 1. As per discharge assessments noted 2. Disposition: patient is discharged to the swing bed 3. Condition on discharge, stable and improved. 4. Diet: regular diet 5. Activities: continue PT and OT 6. Follow-Up: 1. The hospitalist service will continue to follow the patient. 2. 7. Medications at the Time of Discharge: Active Medications Generic Name Dose Route Start Last Admin Trade Name Freq PRN Reason Stop Dose Admin Acetaminophen 325 - 650 mg 08/26/17 17:01 08/31/17 11:21 Tylenol PO 650 mg Q4H PRN Administration pain or fever Hydrocodone Bitart/Acetaminophen 1 tab 08/31/17 12:26 09/01/17 08:55 [place] 7.5/325 Tab PO 1 tab Q6H PRN Administration Pain Al Hydroxide/Mg Hydroxide 10 - 20 ml 08/26/17 17:01 Mylanta Liquid PO Q6H PRN Indigestion Apixaban 5 mg 08/27/17 09:00 09/01/17 08:56 Eliquis PO 5 mg BID FILIBERTO Administration Atorvastatin Calcium 40 mg 08/26/17 21:00 08/31/17 21:06 Lipitor PO 40 mg BEDTIME FILIBERTO Administration Bisacodyl 10 mg 08/26/17 17:01 Bisac-Evac Supp RECTAL ONCE PRN Constipation Bisacodyl 5 mg 08/26/17 17:01 Dulcolax Tab PO BID PRN Constipation Calcium Carbonate 1 - 2 tab 08/26/17 17:01 Tums PO Q4H PRN Indigestion Calcium/Vitamin D 1 tab 08/27/17 09:00 09/01/17 08:56 Calcium 600mg + D 400u Tab PO 1 tab DAILY FILIBERTO Administration Carvedilol 3.125 mg 08/27/17 21:00 09/01/17 08:56 Coreg PO 3.125 mg BID FILIBERTO Administration Docusate Sodium 100 mg 08/26/17 21:00 09/01/17 08:55 Colace PO 100 mg BID FILIBERTO Administration Famotidine 20 mg 08/26/17 21:00 09/01/17 08:56 Pepcid PO 20 mg BID FILIBERTO Administration Ferrous Gluconate 324 mg 08/28/17 09:00 09/01/17 08:56 Fergon PO 324 mg DAILY FILIBERTO Administration Gabapentin 300 mg 08/29/17 21:25 09/01/17 08:56 Neurontin PO 300 mg BID FILIBERTO Administration Sodium Chloride 25 mls @ 200 mls/hr 08/26/17 17:01 Normal Saline 0.9% IV .Post Infusion PRN No Primary IV for Flush ONLY Insulin Glargine 17 unit 08/28/17 21:00 08/31/17 21:06 Lantus Solostar Inj SUBCUT 17 unit BEDTIME FILIBERTO Administration Lidocaine HCl 10 ml 08/27/17 07:06 Xylocaine Uro-Ject 2% TOPICAL ONCE PRN Discomfort catheter insertion Lidocaine HCl 10 ml 08/29/17 12:20 Xylocaine Uro-Ject 2% TOPICAL ONCE PRN Discomfort catheter insertion Metformin HCl 1,000 mg 08/26/17 21:00 09/01/17 08:55 Glucophage Tab PO 1,000 mg BID FILIBERTO Administration Multivitamins Therapeutic 1 tab 08/28/17 09:00 09/01/17 08:55 Thera Tab PO 1 tab DAILY FILIBERTO Administration Naloxone HCl 0.1 mg 08/29/17 11:05 08/29/17 11:17 Narcan Inj IVP 0.1 mg .PER PEST CONTROLLER ASSISTANT ORDERS PRN Administration OVERDOSE Naloxone HCl 0.2 mg 08/29/17 15:45 08/29/17 15:40 Narcan Inj IVP 0.2 mg .PER PEST CONTROLLER ASSISTANT ORDERS FILIBERTO Administration Nf Med - Linaclotide 145 mcg 08/27/17 09:00 09/01/17 08:56 [Linzess] 145 Mcg PO Not Given DAILY FILIBERTO Ondansetron HCl 4 mg 08/26/17 17:01 08/28/17 12:09 Zofran Inj IVP 4 mg Q4H PRN Administration NAUSEA / VOMITING Ondansetron HCl 8 mg 08/26/17 17:01 Zofran Odt PO Q6H PRN NAUSEA Sodium Chloride 5 - 20 ml 08/26/17 17:01 08/28/17 12:09 Saline Flush IVP 10 ml BID PRN Administration Flush Venlafaxine HCl 75 mg 08/26/17 21:00 09/01/17 08:55 Effexor Xr PO 75 mg BID FILIBERTO Administration 8. Time, care, counseling and coordination of care for this discharge is less than 30 minutes. Exam - Vitals Vital Signs: Vital Signs Temperature 97.8 F Temperature Source Temporal Artery Scan Pulse Rate [Apical] 80 Pulse Rate [Pulse Oximeter] 81 Pulse Rate 71 Respiratory Rate 18 Blood Pressure [Right Arm] 109/64 Blood Pressure [Left Arm] 142/68 Blood Pressure 150/72 Pulse Ox 96 Oxygen Flow Rate 2 Oxygen Delivery Method Room Air Height 5 ft 6 in Weight 219 lb 3.2 oz - General General Appearance: No Acute Distress, Cooperative - Head Head Exam: Atraumatic - Eye Eye Exam: POSITIVE: No Scleral Icterus - ENT ENT Exam: POSITIVE: Mucous Membranes Moist - Respiratory Respiratory Exam: POSITIVE: Clear to Auscultation - Bilaterally, Breathing Non Labored - Cardiovascular Cardiovascular Exam: POSITIVE: RRR, No Murmur, No Clicks, No Gallops, No Rubs, No JVD - GI/Abdominal GI/Abdominal Exam: POSITIVE: Normal Bowel Sounds, Non Tender, Non Distended, Soft - Extremities Extremities Exam: POSITIVE: No Clubbing Present, No Edema Present, No Cyanosis Present Additional Extremities Exam Details: swelling and bruising around hip looks good today, no changes from today. - Neurological Neurological Exam: POSITIVE: Alert, Oriented x 3, No Facial Droop, Speech Intact / Clear, Moves All Extremities Equally - Psychiatric Psychiatric Exam: POSITIVE: Normal Affect, Normal Mood - Central Line Examination Central Line Present on Admission: No Data Peritnent Studies: 08/29/17 08/29/17 08/30/17 12:24 15:42 04:20 WBC Hgb Hct Plt Count Sodium 136 Potassium 4.1 Chloride 102 Carbon Dioxide 29 BUN 10 Creatinine 0.4 L Glucose 147 H Calcium 8.1 L Total Bilirubin 0.8 AST 22 ALT 36 Alkaline Phosphatase 53 Troponin I < 0.012 Ur Collection Type Cath specimen Urine Color Jacey A Urine Protein 100 A Urine Bacteria Rare Ur Culture Indicated? Culture set 08/31/17 12:46 WBC 11.54 H Hgb 9.8 L Hct 30.1 L Plt Count 297 Sodium Potassium Chloride Carbon Dioxide BUN Creatinine Glucose Calcium Total Bilirubin AST ALT Alkaline Phosphatase Troponin I Ur Collection Type Urine Color Urine Protein Urine Bacteria Ur Culture Indicated? Patient Problems - Patient Problem List (1) Status post right hip replacement Current Visit: Yes Status: Acute Code(s): Z96.641 - Presence of right artificial hip joint Category: Medical (2) Diabetes type 2, controlled Current Visit: Yes Status: Acute Code(s): E11.9 - Type 2 diabetes mellitus without complications Qualifiers: Diabetes mellitus complication status: without complication Diabetes mellitus detention insulin use: with terminal make up operator use Qualified Code(s): E11.9 - Type 2 diabetes mellitus without complications; Z79.4 - retirement (current) use of insulin Category: Medical (3) Hypertension Current Visit: Yes Status: Chronic Code(s): I10 - Essential (primary) hypertension Qualifiers: Hypertension type: essential hypertension Qualified Code(s): I10 - Essential (primary) hypertension Category: Medical (4) Hyperlipidemia Current Visit: Yes Status: Chronic Code(s): E78.5 - Hyperlipidemia, unspecified Qualifiers: Hyperlipidemia type: unspecified Qualified Code(s): E78.5 - Hyperlipidemia , unspecified Category: Medical (5) GERD (gastroesophageal reflux disease) Current Visit: No Status: Chronic Code(s): K21.9 - Gastro-esophageal reflux disease without esophagitis Qualifiers: Esophagitis presence: esophagitis presence not specified Qualified Code(s) : K21.9 - Gastro-esophageal reflux disease without esophagitis Category: Medical (6) Peripheral neuropathy Current Visit: No Status: Chronic Code(s): G62.9 - Polyneuropathy, unspecified Qualifiers: Peripheral neuropathy type: polyneuropathy, unspecified Qualified Code(s): G62.9 - Polyneuropathy, unspecified Category: Medical (7) Postoperative anemia due to acute blood loss Current Visit: Yes Status: Acute Code(s): D62 - Acute posthemorrhagic anemia Category: Medical (8) Hypotension Current Visit: Yes Status: Resolved Code(s): I95.9 - Hypotension, unspecified Qualifiers: Hypotension type: unspecified hypotension type Qualified Code(s): I95.9 - Hypotension, unspecified Category: Medical
--- NOTE | 2017-09-01 16:57 | PT.PROG ---
Progress Note Progress Note: S. Patient stated that she is feeling good this morning, she reports that she would like to go to the therapy gym. O. Patient ambulated 10 feet to the wheelchair and was wheeled to the therapy gym where she had heat and performed supine exercises in the form of; heel slides, quad sets, ankle pumps, short arc quads, seated marches and long arc quads all x 10 bilaterally. Sit to stands x 5 then ambulated 10 feet to the wheelchair and was returned to her room where she was left in her chair with alarm and call light. A. patient tolerated therapy well this morning, she continues to struggle with transfers and mobility, she would continue to benefit from skilled therapy to increase mobility and endurance. Patient would benefit from Swing bed at this time. P. Continue POC.
== END 2017-09-01 14:12 | disposition swing bed (61) | DRG 470 ==
LOC: OPS 08:58 → MED/SURG 16:44
PROVIDERS: ADMIT Orthopaedic Surgery; ATTEND Orthopaedic Surgery

== ENCOUNTER 2018-02-02 16:25 | Observation (INO) ==
[2018-02-02] MEDS ORDERED: ONDANSETRON 4 MG/2 ML VIAL IVP ONE (16:43)
[2018-02-02] MEDS ORDERED: Sodium Chloride 0.9% 1,000 ML PRIMARY IV ONE (16:43)
[2018-02-02] MEDS ORDERED: fentaNYL Inj 100 MCG/2 ML VIAL IVP ONE (16:43)
--- NOTE | 2018-02-02 16:50 | PDOC ---
General Adult HPI - General Chief Complaint: General Medical Stated Complaint: dizzy, nauseous, htn, numbness/tingling to R arm Date Seen by Provider: 02/02/18 Time Seen by Provider: 16:40 Source: POSITIVE: Patient, [facility] records Exam Limitations: POSITIVE: No limitations, Clinical condition Nurse's Notes Reviewed & Considered: Yes EMS Report Reviewed & Considered: Verbal - History of Present Illness Initial Comment: The patient is an 82-year-old female who currently resides at the skilled nursing who is brought to the emergency department with complaints of headache, dizziness and some increased right arm and hand weakness. She states that sometime around lunchtime she had increased dizziness as well as some increased weakness in her right arm and hand. As the afternoon his progress she has had worsening headache now associated with nausea and she states that her vision does not seem quite right. She states that she has some continued numbness in her right arm and hand and she states that it just doesn't feel quite right to her. She denies any chest pain or shortness of breath. 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 He states that she has some residual weakness in the right arm and hand from this original stroke. She also had some speech difficulties at the time of her previous stroke which for the most part resolved. She is currently on blood thinners as well and takes eloquis. She denies any recent falls. She states that her current headache is 10 out of 10 in regard to pain level. She states that she ran out of blood pressure medication and did not take any of her blood pressure medication yesterday. She did restart this medication earlier today. Have you received a tetanus shot in the past 10 years?: No - Patient Home Medications Home Medications: Home Medications metformin 1,000 mg tablet 1,000 mg PO BID 03/26/17 calcium carbonate-vitamin D3 600 mg (1,500 mg)-500 unit capsule 1 cap PO QDAY cap 04/23/17 atorvastatin 40 mg tablet 40 mg PO QHS 04/24/17 carvedilol 6.25 mg tablet 6.25 mg PO BID tab 07/16/17 docusate sodium 100 mg capsule 100 mg PO QDAY 07/16/17 famotidine 20 mg tablet 20 mg PO BID 07/16/17 alendronate 70 mg tablet 70 mg PO QWEEK 01/12/18 epinephrine 0.3 mg/0.3 mL injection, auto-injector 0.3 mg IM ONCE 01/12/18 insulin glargine (U-100) 100 unit/mL (3 mL) subcutaneous pen 20 unit SUBCUT BEDTIME ml 01/12/18 linaclotide 290 mcg capsule 290 mcg PO QDAY 01/12/18 venlafaxine ER 75 mg capsule,extended release 24 hr 75 mg PO QDAY cap 01/12/18 Apixaban [Eliquis] 5 mg PO DAILY 02/02/18 Fesoterodine Fumarate [Toviaz] 8 mg PO DAILY 02/02/18 Fluticasone Nasal [place] 0.05% [Flonase Nasal [place] 0.05%] 1 gm PRN PRN 02/02/18 Gabapentin 600 mg PO DAILY 02/02/18 HYDROcodone/APAP 5/325 Tab [[place] 5/325 Tab] 1 mg PO PRN 02/02/18 Olmesartan [Benicar] 40 mg PO DAILY 02/02/18 Pantoprazole Sodium [Protonix] 40 mg PO DAILY 02/02/18 Polyethylene Glycol [Polyox Wsr-301] 1 gm PO PRN 02/02/18 Trazodone HCl 150 mg PO DAILY 02/02/18 Valsartan 320 mg PO DAILY 02/02/18 - Patient Allergies Allergies/Adverse Reactions: Allergies 3 Allergy/AdvReac Type Severity Reaction Status Date / Time bee stings Allergy Severe HIVES Uncoded 02/02/18 16:30 morphine AdvReac NAUSEA Uncoded 02/02/18 16:30 Past Medical History - heen HEENT History: Cataracts, Dentures/Partials Cardiovascular History: Hypertension, Hyperlipidemia Additional Cardiovasular History: VENTRICULAR IRRITABILITY Respiratory History: Sleep Apnea, Home Oxygen Use Additional Respiratory History: O2 AT NIGHT Gastrointestinal History: GERD Additional Gastrointestinal History: DIABETIC GASTROPARESIS Genitourinary History: Incontinence Endocrine History: Type 2 Diabetes (insulin) Musculoskeletal History: Arthritis, Back Pain, Joint Pain Prosthesis or Implant: Yes (Bilat knees/Reconstructed R ankle/ Left leg) Additional Musculoskeletal History: SPINAL STENOSIS Neurological History: CVA, TIA, Motion Sickness Additional Neurological History: PERIPHERAL NEUROPATHY Blood Disorders: Denies History Psychiatric History: Depression History of Sexually Transmitted Diseases: No Cancer History: Denies History In Past Year Been Physically Harmed or Verbally Threatened: No History of MDRO: No History of Other Communicable Diseases: No Tobacco Use: Never Smoker In the Past 12 Months, Have Used or Abuse Any Substance: None Previous Surgical History: Yes Type / Date of Surgery: HYST/ APPY/ BREAST BX/ SRIDEVI/ BILAT TKA/ R ankle/ L leg Anesthesia Reactions: No Malignant Hyperthermia: No Significant Family History: Heart disease, Cancer, COPD Past Medical History Reviewed: Reviewed - No Changes ROS - Limitations ROS Limitations: Clinical Condition (Patient is somewhat of a poor historian although seems to answer questions appropriately) Constitution: DENIES: Chills, Fever Cardiovascular: DENIES: Chest Pain Respiratory: DENIES: Shortness Of Breath Neurological: REPORTS: Headache, Dizziness, Tingling (Right arm and hand), Weakness (Increased right arm and hand weakness) Gastrointestinal: REPORTS: Nausea. DENIES: Abdominal Pain, Vomitting Musculoskeletal: REPORTS: Denies MS Symptoms Eyes: REPORTS: Vision Changes (She denies double vision however she states that her vision just seems "off") ENT: REPORTS: Denies Symptoms Skin: DENIES: Rash General Adult Exam - General Appearance General Appearance: POSITIVE: Alert, Cooperative, No Acute Distress - HEENT HEENT: POSITIVE: Head Inspection Nml, Eyes Inspection Nml, Ears Inspection Nml, Nose Inspection Nml, PERRL, EOMI - Neck Neck: POSITIVE: Normal Inspection. NEGATIVE: Lymphadenopathy - Respiratory Respiratory: POSITIVE: No Respiratory Distress, Breath Sounds Normal - Cardiovascular Cardiovascular: POSITIVE: Regular Rate & Rhythm, No Murmur Peripheral Pulses: Radial (R): 2+, Radial (L): 2+, Dorsalis-pedis (R): 2+, Dorsalis-pedis (L): 2+ - Abdomen Abdomen: Soft: (All Quadrants), Denies Tenderness: (All Quadrants), No Distention: (All Quadrants) - Back Back: POSITIVE: Normal Inspection - Skin Skin: POSITIVE: Normal Color, No Rash - Extremities Extremity: Normal ROM: (All Extremities), Normal Inspection: (All Extremities) - Neurological / Psychological Neurological: POSITIVE: Oriented X3, manager printing Normal As Tested, Other (She has fairly equal professor of political science and is able to raise both arms and hands equally, no focal neurologic deficits in the lower extremity) General Adult Progress - Results Reviewed by me Xrays/CTs/US Reviewed by me: Yes Discussed with Radiologist: Yes Radiology Findings: CT scan of the head shows no evidence of acute bleeding or new infarct, old infarcts unchanged from previous head CT per radiologist. Lab Results Reviewed by Me: Yes Lab Results:: Laboratory Results 3 02/02/18 02/02/18 02/02/18 16:46 16:46 16:46 WBC 6.29 RBC 4.78 Hgb 13.8 Hct 40.3 MCV 84.3 MCH 28.9 MCHC 34.2 RDW Std Deviation 42.0 RDW Coeff of Bethanie 13.9 Plt Count 251 MPV 9.5 Immature Gran % (Auto) 0.5 Neut % (Auto) 46.4 L Lymph % (Auto) 42.0 Saline % (Auto) 7.9 Eos % (Auto) 2.7 Baso % (Auto) 0.5 Immature Gran # (Auto) 0.03 Neut # (Auto) 2.92 Lymph # (Auto) 2.64 Saline # (Auto) 0.50 Eos # (Auto) 0.17 Baso # (Auto) 0.03 WBC Morphology Comment Normal morphology Plt Morphology Comment Normal morphology RBC Morph Comment Normal morphology D-Dimer 1.20 H Sodium 139 Potassium 4.1 Chloride 102 Carbon Dioxide 28 Anion Gap 9 BUN 14 Creatinine 0.6 Estimated GFR Director Software BUN/Creatinine Ratio 23.33 H Glucose 121 H Calculated Osmolality 289.0 Calcium 9.0 Magnesium 1.7 Total Bilirubin 0.8 AST 35 ALT 29 Alkaline Phosphatase 72 Troponin I Handheld C-Reactive Protein 0.3 Total Protein 6.5 Albumin 3.4 L Globulin 3.1 Albumin/Globulin Ratio 1.00 L 3 02/02/18 16:46 WBC RBC Hgb Hct MCV MCH MCHC RDW Std Deviation RDW Coeff of Bethanie Plt Count MPV Immature Gran % (Auto) Neut % (Auto) Lymph % (Auto) Saline % (Auto) Eos % (Auto) Baso % (Auto) Immature Gran # (Auto) Neut # (Auto) Lymph # (Auto) Saline # (Auto) Eos # (Auto) Baso # (Auto) WBC Morphology Comment Plt Morphology Comment RBC Morph Comment D-Dimer Sodium Potassium Chloride Carbon Dioxide Anion Gap BUN Creatinine Estimated GFR BUN/Creatinine Ratio Glucose Calculated Osmolality Calcium Magnesium Total Bilirubin AST ALT Alkaline Phosphatase Troponin I Handheld 0.010 C-Reactive Protein Total Protein Albumin Globulin Albumin/Globulin Ratio CBC and BMP: 02/02/18 16:46 02/02/18 16:46 EKG Interpretation:: POSITIVE: Normal Sinus Rhythm, Normal Rate, Normal QRS, Normal ST/T - Patient's Progress MDM / ED Course: The patient's blood pressure was significantly elevated on arrival in the 190s over 90s. She also reported 10 out of 10 headache pain. An IV was established and she did receive fentanyl 50 g and Zofran 4 mg IV for pain and nausea. She did have improvement in her headache down to about a 3 out of 10. Her blood pressure also came down into the 150s over 70s. EKG shows normal sinus rhythm with no acute changes. Her blood work is all essentially unremarkable. CT scan of her head shows old infarct with no acute hemorrhage or infarct per radiologist. These findings were discussed with the patient. At this point it seems that her symptoms are most likely due to hypertensive urgency, possibly being related to not taking her blood pressure medications yesterday. She states that the weakness that she was experiencing in her right hand and arm seemed improved however her hand still felt "tight". She stated that her vision seemed improved as well. After discussion with the patient decision was made to admit the patient for further monitoring. Dr. Dior has agreed to admit the patient observation. - Consult Counseled: POSITIVE: Patient, RE: Lab Results, RE: Radiology Results, RE: DX Patient Care Time - Estimated PCT Patient Care Time (In Minutes): 35 Vital Signs - Recent Vital Signs Vital Signs: Vital Signs (Last 8 hours) Temp Pulse Resp BP Pulse Ox 02/02/18 17:01 97.1 F 73 20 191/92 95 - VS Reviewed Vital Signs Reviewed: Yes Discharge Clinical Impression: Hypertensive urgency, History of stroke, Headache Discharge Disposition: Admit to Observation Condition: Fair
--- NOTE | 2018-02-02 16:51 | EKG ---
[address] [address] Measurements Intervals [place] Rate: 69 P: -50 MO: 172 QRS: 57 QRSD: 99 T: 79 QT: 426 QTc: 446 Interpretive Statements SINUS RHYTHM WITH OCCASIONAL SUPRAVENTRICULAR PREMATURE COMPLEXES No previous ECG available for comparison Electronically Signed On 02-02-18 19:06:32 MDT by Raji Babcock [email or web address]
[2018-02-02 16:57] LABS: BASOPHILS # (AUTO) 0.03 10*3/UL; BASOPHILS % (AUTO) 0.5 % (0-1); EOSINOPHILS # (AUTO) 0.17 10*3/UL; EOSINOPHILS % (AUTO) 2.7 % (0-8); Hematocrit [HCT] 40.3 % (37.0-47.0); Hemoglobin [HGB] 13.8 g/dL (12.0-16.0); LYMPHOCYTES # (AUTO) 2.64 10*3/uL; MEAN CORPUSCULAR HEMOGLOBIN 28.9 PG (27-31); MEAN CORPUSCULAR HGB CONC 34.2 g/dL (33-37); MEAN CORPUSCULAR VOLUME 84.3 FL (81-99); MEAN PLATELET VOLUME 9.5 FL (7.4-12.2); MONOCYTES % (AUTO) 7.9 % (5-15); NEUTROPHILS # (AUTO) 2.92 10*3/UL; NEUTROPHILS % (AUTO) 46.4 % (50-80); RED BLOOD COUNT 4.78 10^6/uL (4.20-5.40)
[2018-02-02 17:05] LABS: PLATELET MORPHOLOGY COMMENT NORMAL MORPHOLOGY (NORM); RBC MORPHOLOGY COMMENT NORMAL MORPHOLOGY (NORM); WBC MORPHOLOGY COMMENT NORMAL MORPHOLOGY (NORM)
[2018-02-02 17:15] LABS: BLOOD UREA NITROGEN 14 mg/dL (7-22); BUN/CREATININE RATIO 23.33 (6-20)
[2018-02-02 17:16] LABS: SERUM ALBUMIN 3.4 g/dL (3.5-4.8)
--- NOTE | 2018-02-02 17:43 | DI ---
CT HEAD SCAN WITHOUT IV CONTRAST, 02/02/2018 4:43 PM : Clinical History: Headache. Dizziness. Right-sided weakness. Previous Exam: 09/04/2017. Scans are obtained from the foramen magnum to the vertex without IV contrast. The fourth ventricle is of normal size, shape, position and contour. The third ventricle is mildly di lated is located midline and normal for this patient's age. The body of the left lateral ventricle is mildly dilated secondary to an old infarct of the left temporal lobe. The body of the right lateral ventricle is normal for the patient's age. There is no acute bland or hemorrhagic infarct. There is a n old lacunar infarct in the head of the right caudate nucleus and a similar small old infarct in the body of the left caudate nucleus. There are multiple punctate periventricular white matter lucencies bilaterally that extend into the watershed territory, consistent with small vessel ischemic disease. This amount of ischemic disease is quite mild for the patient's age. There is mild cerebellar and mo derately severe cerebral atrophy. There are no extracerebral mantles or shift of the midline structur es. Bone window evaluation is normal. The paranasal sinuses are normal. READIN. There is no evidence of acute hemorrhagic or bland infarct. 2. There are old infarcts involving the left temporal lobe as well as the head of the right caudate nucleus and the body of the left caudate nucleus. These have not changed. 3. Small vessel ischemic disease. 4. Mild cerebellar and moderately severe cerebral atrophy.
--- NOTE | 2018-02-02 19:19 | PDOC ---
HPI - History of Present Illness Date of Service: 02/02/18 Time of Service: 19:40 Chief Complaint: Headache, high blood pressure and right arm numbness that started today. History of Present Illness: This is a 82 years old female with medical history significant for history of diabetes, hypertension, history of previous stroke in 2017 who is been living at the senior living here in [place] for about a month who presented to the hospital because of headache, right arm numbness and some lightheadedness that started today. She said the she did not get her blood pressure medication yesterday as they ran out of it and then started to have the symptoms today. They checked her blood pressure blood, blood pressure was elevated in the 200 according to her, they did manage to give her her medication today though because of the symptoms she came into the ER. Blood pressure was elevated and she was admitted. She feels better in terms of the numbness in her arm. The headache she said is a chronic issue and the she feels tired right now but overall better than earlier. Past Medical History Medical History: 1. Diabetes on insulin and Glucophage. 2. Hypertension. 3. Stroke in March last year. 4. Osteoarthritis. 5. History of for obstructive sleep apnea on oxygen at night. 6. GERD. 7. History of neuropathy. 8. History of chronic back pain Surgical History: 1. History of cholecystectomy. 2. History of knee replacements before Pertinent Family History: Son had coronary artery disease Past Social History: She used to smoke and drink but not anymore. Lives in [facility] for a month now. Had 4 children one of them from coronary artery disease. She doesn't drive. Tobacco Use: Never Smoker In the Past 12 Months, Have Used or Abuse Any of the Following Substance: None Alcohol Use: None Medication / Allergies Home Medications: Home Medications 3 Medication Instructions Recorded Confirmed Type metformin 1,000 mg tablet 1,000 mg PO BID 03/26/17 02/02/18 History calcium carbonate-vitamin D3 600 1 cap PO QDAY cap 04/23/17 02/02/18 History mg (1,500 mg)-500 unit capsule atorvastatin 40 mg tablet 40 mg PO QHS 04/24/17 02/02/18 History carvedilol 6.25 mg tablet 6.25 mg PO BID tab 07/16/17 02/02/18 History docusate sodium 100 mg capsule 100 mg PO QDAY 07/16/17 02/02/18 History famotidine 20 mg tablet 20 mg PO BID 07/16/17 02/02/18 History alendronate 70 mg tablet 70 mg PO QWEEK 01/12/18 02/02/18 History epinephrine 0.3 mg/0.3 mL 0.3 mg IM ONCE 01/12/18 02/02/18 History injection, auto-injector insulin glargine (U-100) 100 20 unit SUBCUT BEDTIME ml 01/12/18 02/02/18 History unit/mL (3 mL) subcutaneous pen linaclotide 290 mcg capsule 290 mcg PO QDAY 01/12/18 02/02/18 History venlafaxine ER 75 mg 75 mg PO QDAY cap 01/12/18 02/02/18 History capsule,extended release 24 hr Apixaban [Eliquis] 5 mg PO DAILY 02/02/18 02/02/18 History Fesoterodine Fumarate [Toviaz] 8 mg PO DAILY 02/02/18 02/02/18 History Fluticasone Nasal [place] 0.05% 1 gm PRN PRN 02/02/18 02/02/18 History [Flonase Nasal [place] 0.05%] Gabapentin 600 mg PO DAILY 02/02/18 02/02/18 History HYDROcodone/APAP 5/325 Tab [[place] 1 mg PO PRN 02/02/18 02/02/18 History 5/325 Tab] Olmesartan [Benicar] 40 mg PO DAILY 02/02/18 02/02/18 History Pantoprazole Sodium [Protonix] 40 mg PO DAILY 02/02/18 02/02/18 History Polyethylene Glycol [Polyox 1 gm PO PRN 02/02/18 02/02/18 History Wsr-301] Trazodone HCl 150 mg PO DAILY 02/02/18 02/02/18 History Valsartan 320 mg PO DAILY 02/02/18 02/02/18 History Allergies/Adverse Reactions: Allergies 3 Allergy/AdvReac Type Severity Reaction Status Date / Time bee stings Allergy Severe HIVES Uncoded 02/02/18 16:30 morphine AdvReac NAUSEA Uncoded 02/02/18 16:30 Review of Systems - Review of Systems All Systems: Reviewed & No Additional Complaints Except as Stated Exam - Vitals Vital Signs: Vital Signs Temperature 97.1 F Temperature Source Temporal Artery Scan Pulse Rate [Pulse Oximeter] 73 Respiratory Rate 20 Blood Pressure [Left Arm] 191/92 Pulse Ox 95 Oxygen Flow Rate 2 Oxygen Delivery Method Nasal Cannula Height 5 ft 6 in Weight 188 lb - General General Appearance: No Acute Distress, Cooperative - Head Head Exam: Normal Inspection - Eye Eye Exam: POSITIVE: Normal Appearance - ENT ENT Exam: POSITIVE: Normal Exam - Neck Neck Exam: Normal Inspection - Respiratory Respiratory Exam: POSITIVE: Clear to Auscultation - Bilaterally - Cardiovascular Cardiovascular Exam: POSITIVE: RRR - GI/Abdominal GI/Abdominal Exam: POSITIVE: Normal Bowel Sounds, Non Tender, Non Distended, Soft, No Organomegaly - Rectal Rectal Exam: POSITIVE: Deferred - External Exam: POSITIVE: Deferred Exam: POSITIVE: Deferred - Extremities Extremities Exam: POSITIVE: Normal Inspection - Back Back Exam: POSITIVE: Normal Inspection - Neurological Neurological Exam: POSITIVE: Alert, Oriented x 3, Normal Gait, CN II-XII Intact , No Facial Droop, Speech Intact / Clear Additional Neurological Exam Details: very subtle handgrip weakness otherwise no other abnormalities noted. No pronator drift present. - Psychiatric Psychiatric Exam: POSITIVE: Normal Affect - Integumentary Integumentary Exam: POSITIVE: Normal Color Results - Labs CBC and BMP: 02/02/18 16:46 02/02/18 16:46 - EKG Data -: EKG Interpreted by Me Rate: Normal EKG Shows Normal: Sinus Rhythm - EKG Data EKG Interpretation: Other (Sinus rhythm with occasional premature ventricular beat) - Imaging Status: Report Reviewed by Me (C T head 1. There is no evidence of acute hemorrhagic or bland infarct. 2. There are old infarcts involving the left temporal lobe as well as the head of the right caudate nucleus and the body of the left caudate nucleus. These have not changed. 3. Small vessel ischemic disease. 4. Mild cerebellar and moderately severe cerebral atrophy.) Assessment and Plan - Patient Problems (1) Hypertensive urgency Current Visit: Yes Status: Acute Comment: We will put her back on her usual blood pressure medications and watch the overnight will see her symptoms tomorrow and decide if we need to do an MRI. Code(s): I16.0 - Hypertensive urgency (2) Diabetes type 2, controlled Current Visit: No Status: Chronic Comment: Continue her usual medications Code(s): E11.9 - Type 2 diabetes mellitus without complications Qualifiers: Diabetes mellitus fpc insulin use: with manager intermediate use Diabetes mellitus complication status: without complication Qualified Code(s): E11.9 - Type 2 diabetes mellitus without complications; Z79.4 - [facility] (current) use of insulin (3) Hyperlipidemia Current Visit: No Status: Chronic Comment: Same medications Code(s): E78.5 - Hyperlipidemia, unspecified Qualifiers: Hyperlipidemia type: unspecified Qualified Code(s): E78.5 - Hyperlipidemia , unspecified (4) History of stroke Current Visit: Yes Status: Acute Comment: She had history of stroke in March 2017. She said they put her on eliquis for that. She said she bled in her brain but she is not sure why did they put her on eliquis. As far as she knows she does not have a history of A. fib. Code(s): Z86.73 - Personal history of transient ischemic attack (TIA), and cerebral infarction without residual deficits
[2018-02-02] MEDS ORDERED: LIDOCAINE W/ SODIUM BICARB 0.5 ML SYR SUBD PRN (19:46)
[2018-02-02] MEDS ORDERED: ONDANSETRON 4 MG/2 ML VIAL IVP PRN (19:46)
[2018-02-02] MEDS ORDERED: DOCUSATE 100 MG CAPSULE PO PRN (19:46)
[2018-02-02] MEDS ORDERED: ACETAMINOPHEN 325 MG TABLET PO PRN (19:46)
[2018-02-02] MEDS ORDERED: CALCIUM CARBONATE 500 MG (TUMS) CHEWABLE TABLET PO PRN (19:46)
[2018-02-02] MEDS ORDERED: FAMOTIDINE 20 MG TABLET PO SCH (21:00)
[2018-02-02] MEDS ORDERED: Insulin Glargine SoloStar Inj 100 UNIT/ML INSULN.PEN SUBCUT SCH ×2 (21:00)
[2018-02-02] MEDS ORDERED: ATORVASTATIN 40 MG TABLET PO SCH (21:00)
[2018-02-02] MEDS: Apixaban 5 MG TABLET PO SCH (21:05)
[2018-02-02] MEDS: CARVEDILOL 6.25 MG TABLET PO SCH (21:05)
[2018-02-02] MEDS: HYDROcodone-APAP 5 MG -325 MG TABLET PO PRN (21:06)
[2018-02-02] MEDS: metFORMIN 500 MG TABLET PO SCH (21:11)
[2018-02-03 07:08] VITALS: BP 136/58; RESP 18; TEMP 97.2; O2SAT 93
[2018-02-03] MEDS: Apixaban 5 MG TABLET PO SCH (08:16)
[2018-02-03] MEDS: metFORMIN 500 MG TABLET PO SCH (08:16)
--- NOTE | 2018-02-03 08:16 | DCSUMMARY ---
Hospitalization Summary Admit Date: 02/02/2018 Discharge Date: 02/03/18 Hospital Course: Discharge diagnoses 1. Hypertensive urgency 2. History of diabetes 3. Hypertension 4. History of stroke in March 2017 5. Osteoarthritis 6. GERD 7. Neuropathy 8. History of chronic back pain Hospital course This is an 82 years old female with medical history significant for history of diabetes, hypertension and history of previous stroke in 2016 who is been living at the [facility] here in [place] for about a month who presented to the hospital because of headache, right arm numbness and some lightheadedness that started today. She said she did not get her blood pressure medication the day before admission as they run out on it and she started to have symptoms the day of admission. They checked her blood pressure, her blood pressure was elevated in the 200s range according to her, they did manage to give her her medication on the day of admission but because of the symptoms she came into the ER. Blood pressure was elevated and she was admitted. She felt better when I saw her in terms of the numbness in her right arm. The headache that she is been having is a chronic issue. 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 We put her back on her usual medications. CT of the head done showed old strokes. The next day she was back to her usual self the headache improved the numbness resolved exam unremarkable we thought that she could go back to the [facility]. Will put her back on her usual medications. She will need follow-up with her primary. Laboratory Results 02/02/18 02/02/18 02/02/18 Range/Units 16:46 16:46 16:46 WBC 6.29 (4.8-10.8) 10^3/uL RBC 4.78 (4.20-5.40) 10^6/uL Hgb 13.8 (12.0-16.0) g/dL Hct 40.3 (37.0-47.0) % MCV 84.3 (81-99) FL MCH 28.9 (27-31) PG MCHC 34.2 (33-37) g/dL RDW Std Deviation 42.0 (39-50) fL RDW Coeff of Bethanie 13.9 (11.5-14.5) % Plt Count 251 (140-350) 10*3/uL MPV 9.5 (7.4-12.2) FL Immature Gran % (Auto) 0.5 (0-5) % Neut % (Auto) 46.4 L (50-80) % Lymph % (Auto) 42.0 (10-50) % Ocean % (Auto) 7.9 (5-15) % Eos % (Auto) 2.7 (0-8) % Baso % (Auto) 0.5 (0-1) % Immature Gran # (Auto) 0.03 10*3/UL Neut # (Auto) 2.92 10*3/UL Lymph # (Auto) 2.64 10*3/uL Ocean # (Auto) 0.50 (0.3-0.8) 10*3/UL Eos # (Auto) 0.17 10*3/UL Baso # (Auto) 0.03 10*3/UL WBC Morphology Comment Normal morphology (NORM) Plt Morphology Comment Normal morphology (NORM) RBC Morph Comment Normal morphology (NORM) D-Dimer 1.20 H (0.00-0.59) mg/L Sodium 139 (135-145) meq/L Potassium 4.1 (3.8-5.2) meq/L Chloride 102 (98-112) meq/L Carbon Dioxide 28 (23-33) meq/L Anion Gap 9 (5-20) BUN 14 (7-22) mg/dL Creatinine 0.6 (0.50-1.20) mg/dL Estimated GFR Courtesy [employer] Cashier BUN/Creatinine Ratio 23.33 H (6-20) Glucose 121 H (78-110) mg/dL Calculated Osmolality 289.0 (267-292) mOsm/kg Calcium 9.0 (8.7-10.7) mg/dL Magnesium 1.7 (1.6-2.4) mg/dL Total Bilirubin 0.8 (0.3-1.2) mg/dL AST 35 (8-39) IU/L ALT 29 (9-52) IU/L Alkaline Phosphatase 72 (38-126) IU/L Troponin I Handheld (< 0.040) ng/mL C-Reactive Protein 0.3 (0.0-0.9) mg/dL Total Protein 6.5 (6.1-8.0) g/dL Albumin 3.4 L (3.5-4.8) g/dL Globulin 3.1 (2.50-4.10) g/dL Albumin/Globulin Ratio 1.00 L (1.3-2.0) mg/g 02/02/18 Range/Units 16:46 WBC (4.8-10.8) 10^3/uL RBC (4.20-5.40) 10^6/uL Hgb (12.0-16.0) g/dL Hct (37.0-47.0) % MCV (81-99) FL MCH (27-31) PG MCHC (33-37) g/dL RDW Std Deviation (39-50) fL RDW Coeff of Bethanie (11.5-14.5) % Plt Count (140-350) 10*3/uL MPV (7.4-12.2) FL Immature Gran % (Auto) (0-5) % Neut % (Auto) (50-80) % Lymph % (Auto) (10-50) % Ocean % (Auto) (5-15) % Eos % (Auto) (0-8) % Baso % (Auto) (0-1) % Immature Gran # (Auto) 10*3/UL Neut # (Auto) 10*3/UL Lymph # (Auto) 10*3/uL [place] # (Auto) (0.3-0.8) 10*3/UL Eos # (Auto) 10*3/UL Baso # (Auto) 10*3/UL WBC Morphology Comment (NORM) Plt Morphology Comment (NORM) RBC Morph Comment (NORM) D-Dimer (0.00-0.59) mg/L Sodium (135-145) meq/L Potassium (3.8-5.2) meq/L Chloride (98-112) meq/L Carbon Dioxide (23-33) meq/L Anion Gap (5-20) BUN (7-22) mg/dL Creatinine (0.50-1.20) mg/dL Estimated GFR BUN/Creatinine Ratio (6-20) Glucose (78-110) mg/dL Calculated Osmolality (267-292) mOsm/kg Calcium (8.7-10.7) mg/dL Magnesium (1.6-2.4) mg/dL Total Bilirubin (0.3-1.2) mg/dL AST (8-39) IU/L ALT (9-52) IU/L Alkaline Phosphatase (38-126) IU/L Troponin I Handheld 0.010 (< 0.040) ng/mL C-Reactive Protein (0.0-0.9) mg/dL Total Protein (6.1-8.0) g/dL Albumin (3.5-4.8) g/dL Globulin (2.50-4.10) g/dL Albumin/Globulin Ratio (1.3-2.0) mg/g Discharge suction Diet diabetic Activity as started Medication Home Medications metformin 1,000 mg tablet 1,000 mg PO BID 03/26/17 [History Confirmed 02/02/18] calcium carbonate-vitamin D3 600 mg (1,500 mg)-500 unit capsule 1 cap PO QDAY cap 04/23/17 [History Confirmed 02/02/18] atorvastatin 40 mg tablet 40 mg PO QHS 04/24/17 [History Confirmed 02/02/18] carvedilol 6.25 mg tablet 6.25 mg PO BID tab 07/16/17 [History Confirmed ] docusate sodium 100 mg capsule 100 mg PO QDAY 07/16/17 [History Confirmed ] alendronate 70 mg tablet 70 mg PO QWEEK 01/12/18 [History Confirmed 02/02/18] epinephrine 0.3 mg/0.3 mL injection, auto-injector 0.3 mg IM ONCE 01/12/18 [ History Confirmed 02/02/18] insulin glargine (U-100) 100 unit/mL (3 mL) subcutaneous pen 20 unit SUBCUT BEDTIME ml 01/12/18 [History Confirmed 02/02/18] linaclotide 290 mcg capsule 290 mcg PO QDAY 01/12/18 [History Confirmed 02/02/18 ] venlafaxine ER 75 mg capsule,extended release 24 hr 75 mg PO QDAY cap 01/12/18 [History Confirmed 02/02/18] Fesoterodine Fumarate [Toviaz] 8 mg PO DAILY 02/02/18 [History Confirmed ] Gabapentin 600 mg PO DAILY 02/02/18 [History Confirmed 02/02/18] HYDROcodone/APAP 5/325 Tab [[place] 5/325 Tab] 1 mg PO PRN 02/02/18 [History Confirmed 02/02/18] Olmesartan [Benicar] 40 mg PO DAILY 02/02/18 [History Confirmed 02/02/18] Pantoprazole Sodium [Protonix] 40 mg PO DAILY 02/02/18 [History Confirmed ] Polyethylene Glycol [Polyox Wsr-301] 1 gm PO PRN 02/02/18 [History Confirmed 12/15] Apixaban [Eliquis] 5 mg PO BID tablet 02/03/18 [Rx] Famotidine [Pepcid] 20 mg PO DAILY tab 02/03/18 [Rx] Follow-up with her PCP in 1-2 weeks Condition at discharge was stable for discharge Exam - Vitals Vital Signs: Vital Signs Temperature 97.2 F Temperature Source Temporal Artery Scan Pulse Rate [Pulse Oximeter] 63 Pulse Rate 66 Respiratory Rate 18 Blood Pressure [Right Arm] 136/58 Blood Pressure [Left Arm] 134/60 Blood Pressure 141/100 Pulse Ox 93 Oxygen Flow Rate 2 Oxygen Delivery Method Room Air Height 5 ft 6 in Weight 195 lb 2 oz - General General Appearance: No Acute Distress, Cooperative - Head Head Exam: Normal Inspection - Eye Eye Exam: POSITIVE: Normal Appearance - ENT ENT Exam: POSITIVE: Normal Exam - Neck Neck Exam: Normal Inspection - Respiratory Respiratory Exam: POSITIVE: Clear to Auscultation - Bilaterally - Cardiovascular Cardiovascular Exam: POSITIVE: RRR - GI/Abdominal GI/Abdominal Exam: POSITIVE: Normal Bowel Sounds, Non Tender, Non Distended, Soft, No Organomegaly - Rectal Rectal Exam: POSITIVE: Deferred - External Exam: POSITIVE: Deferred Exam: POSITIVE: Deferred - Extremities Extremities Exam: POSITIVE: Normal Inspection - Back Back Exam: POSITIVE: Normal Inspection - Neurological Neurological Exam: POSITIVE: Alert, Oriented x 3, CN II-XII Intact, No Facial Droop, Speech Intact / Clear - Psychiatric Psychiatric Exam: POSITIVE: Normal Affect Patient Problems - Patient Problem List (1) Hypertensive urgency Current Visit: Yes Status: Acute Code(s): I16.0 - Hypertensive urgency Category: Medical (2) Diabetes type 2, controlled Current Visit: No Status: Chronic Code(s): E11.9 - Type 2 diabetes mellitus without complications Qualifiers: Diabetes mellitus prison insulin use: with termination clerk use Diabetes mellitus complication status: without complication Qualified Code(s): E11.9 - Type 2 diabetes mellitus without complications; Z79.4 - care home (current) use of insulin Category: Medical (3) Hyperlipidemia Current Visit: No Status: Chronic Code(s): E78.5 - Hyperlipidemia, unspecified Qualifiers: Hyperlipidemia type: unspecified Qualified Code(s): E78.5 - Hyperlipidemia , unspecified Category: Medical (4) History of stroke Current Visit: Yes Status: Acute Code(s): Z86.73 - Personal history of transient ischemic attack (TIA), and cerebral infarction without residual deficits Category: Medical
[2018-02-03] MEDS: CARVEDILOL 6.25 MG TABLET PO SCH (08:17)
[2018-02-03] MEDS: HYDROcodone-APAP 5 MG -325 MG TABLET PO PRN (08:50)
[2018-02-03] MEDS ORDERED: Olmesartan Tab 40 MG TAB PO SCH (09:00)
[2018-02-03] MEDS ORDERED: PANTOPRAZOLE 40 MG TABLET PO SCH ×2 (09:00→17:00)
[2018-02-03] MEDS ORDERED: GABAPENTIN 300 MG CAPSULE PO SCH (09:00)
[2018-02-03] MEDS ORDERED: FAMOTIDINE 20 MG TABLET PO SCH (09:00)
[2018-02-03] MEDS ORDERED: Calcium/Vit D 600mg/400u Tab 1 TAB TABLET PO SCH (09:00)
[2018-02-03] MEDS ORDERED: FESOTERODINE FUMARATE 8 MG PO SCH (09:00)
[2018-02-03] MEDS ORDERED: Linaclotide Cap 290 MCG CAPSULE PO SCH (09:00)
[2018-02-03] MEDS ORDERED: VENLAFAXINE XR 75 MG CAP PO SCH (09:00)
== END 2018-02-03 09:17 ==
LOC: MED/SURG 16:25 → ER 16:25 → MED/SURG 19:10
PROVIDERS: ADMIT Internal Medicine; ATTEND Internal Medicine